=== PATIENT | male | born 1955 | race Caucasian/White ===

== ENCOUNTER 2022-08-17 12:48 | Outpatient (CLI) | payer MEDICARE, OTHER, SELFPAY ==
--- OUTSIDE RECORDS SUMMARY | 2022-08-17 12:50 | XMS_ITS ---
:1955 Author Care Team Providers Name Role Phone TRI KING MD Primary Care Provider [phone] Allergies Code Code System Name Reaction Severity Status Onset NKDA ? Medications Name Status Start Date Stop Date ? ? amoxicillin 500 mg capsule Active ? Not a vailable TK 1 C PO TID UNTIL GONE ceftriaxone 1 gram solution for injection Active ? Not available Take 1 g by injection route. Contour Next EZ Meter Active ? Not availa ble UTD Contour Next Test Strips Active ? Not colby ilable TEST BLOOD SUGARS BID metformin ER 500 mg tablet,extended release 24 hr Active ? Not available TAKE TWO TABLETS BY MOUTH EVERY DAY Microlet Lancet Active ? Not available TEST BID Problems None recorded. Procedures Date Name Performed by ? ? Orthopedic Surgery Information not avai labbinu Notes: Right Forearm/wrist Results Lab Results None recorded. Past Encounters 05/13/2021 Raised Prostate Specific Antigen Phan Peoples MD: [address] [place] [address], Ph. Social History Tobacco Smoking Status Former Smoker Vaccine List None recorded. Plan of Care Reminders Provider Appointments None recorded. ? ? Lab None recorded. ? ? Referral None recorded. ? ? Procedures None recorded. ? ? Surgeries None recorded. ? ? Imaging None recorded. ? ? Vitals Height Weight BMI 6 ft 4 lbs 0.5 kg/m2
[2022-08-17 14:05] LABS: Chloride* 103 mmol/L (96-114); Potassium* 4.9 mmol/L (3.6-5.1); Sodium* 136 mmol/L (135-149)
[2022-08-17 14:08] LABS: Blood Urea Nitrogen* 19 mg/dL (7-30); Carbon Dioxide* 27 mmol/L (20-32); Creatinine* 0.7 mg/dL (0.5-1.5); Estimated Glomerular Filt Rate 100 ml/min; Glucose* 179 mg/dL (60-115)
[2022-08-17 14:09] LABS: Calcium* 9.1 mg/dL (8.4-10.6)
[2022-08-17 14:38] LABS: PSA Diagnostic* 8.73 ng/mL (0.10-4.00)
== END 2022-08-17 12:49 | disposition home or self-care (01) ==
PROVIDERS: PCP Family Medicine; Visit Provider Family Medicine
DX: R97.20 Elevated prostate specific antigen [PSA] (principal); E11.9 Type 2 diabetes mellitus without complications
CPT/HCPCS: 80048; 84153

== ENCOUNTER 2023-02-28 10:33 | Outpatient (CLI) | payer MEDICARE, OTHER, SELFPAY | END 2023-02-28 10:34 | disposition home or self-care (01) | PROVIDERS: PCP Family Medicine; Visit Provider Family Medicine | DX: E11.9 Type 2 diabetes mellitus without complications (principal); R97.20 Elevated prostate specific antigen [PSA] | CPT/HCPCS: 80048; 84153; 84460 ==

== ENCOUNTER 2023-08-28 11:51 | Outpatient (CLI) | payer MEDICARE, OTHER, SELFPAY | END 2023-08-28 11:52 | disposition home or self-care (01) | PROVIDERS: PCP Family Medicine; Visit Provider Family Medicine | DX: I10 Essential (primary) hypertension (principal); E11.9 Type 2 diabetes mellitus without complications; R97.20 Elevated prostate specific antigen [PSA] | CPT/HCPCS: 80061; 84153 ==

== ENCOUNTER 2024-01-05 13:50 | Outpatient (CLI) | payer OTHER, MEDICARE, SELFPAY ==
--- OUTSIDE RECORDS SUMMARY | 2024-01-05 13:51 | XMS_ITS | Data Portability ---
Author Name Unknown Address [address] [place] [address] Phone [phone] Organization [facility], [facility] Address [address] [facility] [address] [place] [address] Care Team Providers Care Parking Station Attendant Name Role Phone TRI KING Primary Care Provider Assessment Encounter Date Assessment Date Assessment LastModified by Organization Details LastModified Time 05/13/2021 05/13/2021 65 year old male with elevated PSA, now s/p biopsy. [email or web address] Not available 05/11/2021 09:09:17 Plan of Treatment Reminders Order Date Submit Date Provider Last Modified By Organization Details Last Modified Time Details Appointments None recorded. Lab None recorded. Referral None recorded. Procedures None recorded. Surgeries None recorded. Imaging None recorded. Medication Orders ceftriaxone 1 gram solution for injection 2020 08 [address]21 [address] [facility], [place], [place], [facility] [place], [address], 09:30:06 Patient TargetsNo targets recorded. Patient InstructionsNo instructions recorded. Reason for Referral None Reported. Results Created Date Observation Date Name Description Value Unit Range Abnormal Flag LastModifiedBy Organization Detail LastModifiedTime 05/14/2005/13/2021 US, prost ate No observ ation record ed. BARCODE Not Available 05/14/2021 09:26:28 Result Notes None recorded. Procedures Surgical History Date Name Laterality Status Provider Name and Address Organization Details Recorded Time Prostate Biopsy Procedure completed Phan Peoples MD [address] [facility],[address], [place], [address], [facility] 05/13/2021 09:51:41 Orthopedic Surgery completed Darlene lees [facility] 05/13/2021 09:21:37 Imaging Results Imaging Date Name Status LastModified by Organiz ation Details LastModified Time 05/13/2021 US, prostate completed BARCODE Information not available 05/14/2021 09:26:28 Procedure Notes None recorded. Medical Equipment None Reported. Allergies No known drug allergies Medications Name Sig Start Date Stop Date Status Note LastModified by Organization Details LastModified Time amoxicillin 500 mg capsule TK 1 C PO TID UNTIL GONE active Not Available Not Available No t Available ceftriaxone 1 gram solution for injection Take 1 g by injection route. 2020 active Not Available Not Available Not Avai lable metformin ER 500 mg tablet,extend ed release 24 hr TAKE TWO TABLETS BY MOUTH EVERY DAY active Not Available Not Available No t Available Microlet Lancet TEST BID active Not Available Not Available Not Available Contour Next Test Strips TEST BLOOD SUGARS BID active Not Available Not Available N ot Available Contour Next EZ Meter UTD active Not Available Not Available Not Available Vitals Date Recorded Body height Body mass index (BMI) Body weight Provider Name and Address Organization Details Last Updated DateTime 05/13/2021 182.88 cm 0.5 kg/m2 1814.37 g Darlene Yumiko yoana [facility] 05/13/2021 09:28:45 Social History Question Answer Notes LastModified by Organizat ion Details LastModified Time Tobacco Smoking Status Former Smoker Darlene lees [facility] 05/13/2021 09:22:45 What Is Your Level Of Alcohol Consumption? Occasional Information not available 05/13/2021 What Is Your Level Of Caffeine Consumption? Occasional Information not available 05/13/2021 When Did You Quit Smoking? 16+yearssincel astcigarette Information not available 05/13/2021 Recreational Drug Use No Information not available 05/13/2021 Could You Be ? No Information not available 05/13/2021 What Was The Date Of Your Most Recent Tobacco Screening? 05/13/2021 Information not available 05/13/2021 Do You Use Any Illicit Or Recreational Drugs? No Information not available 05/13/2021 Sex: Male Functional Status None recorded. Mental Status None recorded. Family History Relationship Description Onset Age of this Age Resolved Age Notes Father No current problems or disability Mother No current problems or disability Medical History Condition Response High Blood Pressure N Kidney Stones N Lung Disease N Depression N GERD/Acid Reflux N Sexually Transmitted Infection N Cancer N High Cholesterol N Diabetes Y Bleeding Disorder N Heart Disease N Past Encounters Encounter ID Performer Location Encounter Start Date Encounter Closed Date Diagnosis/Indication Diagnosis SNOMED-CT Code [id number] Phan Peoples MD [facility] [address] [place] [address] 05/13/2021 09:11:34 05/14/2021 16:30:21 Prostate specific antigen above reference range [id number] Health Concerns Section Related Observation LastModified by Organization Detai ls LastModified Time None Recorded Concern Status LastModified by Organization Details LastModified Time None Recorded Advance Directives Directive None Recorded Payers Encounter Date Sequence Insurance Name Policy Number Policy Deras Covered Member ID Deras Member ID Guarantor Name 05/13/2021 1 [place] [employer] Elena Weiss [place] [id number] Burten Erath 05/13/2021 2 [employer] SU[employer]AL - [employer]URANCE (MEDICARE SUPPLEMENT) Elena Weiss [place] [id number] Shaten [place] Notes Date Note Type Note Provider Name and Address Organization Details Recorded Time 05/13/2021 text/html HPI Notes: 65 year old male who follows with me in our [place] [facility] for elevated PSA (most recently 4.45 ng/mL). Here for TRUS biopsy. Phan Peoples MD [address] [place] [address],[address], [place], [address], [facility] 05/13/2021 09:52:19
--- OUTSIDE RECORDS SUMMARY | 2024-01-05 13:51 | XMS_ITS | Clinical Summary ---
Author Name Unknown Organization [facility] Address [place], [place] [address] Care Team Providers Care Sql Dba Name Role Phone Pcp, No Primary Care Provider Unavailabl e Allergies No known active allergies Medications Medication Sig Dispensed Refills Start Date End Date Status acetaminophen (TYLENOL EXTRA STRGTH) 500 mg tabletIndications:Anabel sed nondisplaced pilon fracture of left tibia, initial encounter Take 2 Tablets (1,000 mg) by mouth every 8 hours. Max acetaminophen dose: 4000mg in 24 hrs. 10/24/2023 Active ibuprofen (ADVIL; MOTRIN) 200 mg tabletIndications:Anabel sed nondisplaced pilon fracture of left tibia, initial encounter Take 1 Tablet (200 mg) by mouth every 6 hours if needed for Pain (mild to moderate pain). 10/24/2023 Active polyethylene glycol (MIRALAX; GLYCOLAX) 17 g per packet packetIndications:Anabel sed nondisplaced pilon fracture of left tibia, initial encounter Mix 17 g in liquid then take by mouth once daily. 10/25/2023 Active sennosides-docusate (SENOKOT S) (8.6-50 mg) tabletIndications:Anabel sed nondisplaced pilon fracture of left tibia, initial encounter Take 2 Tablets by mouth two times daily. 10/24/2023 Active lisinopril-hydrochlor othiazide (10-12.5 mg) tablet (PRINZIDE; ZESTORETIC)Indication s:Essential hypertension Take 1 Tablet by mouth once daily. Hold for Systolic blood pressure less than 120 10/25/2023 Active oxyCODONE (ROXICODONE) 5 mg immediate release tabletIndications:Anabel sed nondisplaced pilon fracture of left tibia, initial encounter Take 1 Tablet (5 mg) by mouth every 6 hours if needed for Pain (for moderate to severe pain). Avoid use with other narcotics. 25 Tablet 10/28/2023 Active metFORMIN (GLUCOPHAGE XR) 500 mg Extended-Release tabletIndications:typ e 2 diabetes mellitus Take 1 Tablet (500 mg) by mouth two times daily with meals. 10/29/2023 Active glimepiride (AMARYL) 4 mg tabletIndications:typ e 2 diabetes mellitus Take 1 Tablet (4 mg) by mouth once daily with a meal. 10/29/2023 Active crutchIndications:Pil on fracture of left tibia, closed, initial encounter For home use. 2 Each 11/07/2023 Active durable medical equipment (DME)Indications:Afte rcare following surgery of the musculoskeletal system 4 wheel walker with seat and basket 1 Each 11/10/2023 Active durable medical equipment (DME)Indications:Afte rcare following surgery of the musculoskeletal system Bench for shower 1 Each 11/10/2023 Active methocarbamoL (ROBAXIN) 500 mg tabletIndications:Anabel sed nondisplaced pilon fracture of left tibia, initial encounter Take 1 Tablet (500 mg) by mouth every 8 hours if needed for Muscle Spasm by mouth 1st choice. 90 Tablet 11/20/2023 Active ondansetron (Zofran) 4 mg tabletIndications:Adelso sea Take 1 Tablet (4 mg) by mouth every 8 hours if needed for Nausea/Vomiting. 10 Tablet 11/20/2023 Active trimethoprim-sulfamet hoxazole, 160-800 mg, (Bactrim DS) tabIndications:Afterc are following surgery of the musculoskeletal system Take 1 Tablet by mouth two times daily for 14 days. 28 Tablet 12/25/2023 4 Active durable medical equipment (DME)Indications:Afte rcare following surgery of the musculoskeletal system Airselect Standard, Large 12/25/2023 Active Active Problems Problem Noted Date Diagnosed Date S/P Open reduction internal fixation of the Left pilon fracture 11/10/2023 DM II (diabetes mellitus, type II), controlled 0 10/18/2023 Fall from ladder 10/17/2023 Tibia fracture 10/17/2023 No active medical problems 09/19/2011 Encounters Date Type Department Care Team Description 12/29/2023 Telephone [facility] [address] [place] [address] Ariel Garner, 12/25/2023 1:30 PM CDT [facility] [address] [place] [address] 12/25/2023 1:00 PM CDT Office Visit [facility] [address] [place] [address] Ariel Garner, DO Musculoskeletal Problem (S/P Open reduction internal fixation of the??Left??pilon fracture, Removal of external fixator under anesthesia by Dr. Garner) 12/25/2023 Travel 11/20/2023 12:05 PM [employer] Ancillary Procedure [facility] [address] [place] [address] 11/20/2023 11:45 AM [employer] Office Visit [facility] [address] [place] [address] Shailesh Granados PA Surgical Followup (S/P Open reduction internal fixation of the Left pilon fracture, Removal of external fixator) 11/20/2023 Travel 11/10/2023 Telephone [facility] [address] [place] [address] Ariel Garner, DO DME Supply ([employer] ) 11/09/2023 Telephone [facility] [address] [place] [address] Ariel Garner, DO Appointment 11/07/[address] [facility] [address] [place] [address] Karely Alston NP 10/27/2023 10:19 AM [employer] - 10/27/2023 1:36 PM [employer] Surgery [place] [id number] [place] [address] Ariel Garner, OPEN REDUCTION INTERNAL FIXATION OF LEFT DISTAL TIBIA FRACTURE AND REMOVAL OF EXTERNAL FIXATOR 10/27/2023 9:50 AM [employer] Anesthesia Event [place] [id number] [facility] [place] [address] Desean Young, RONY 10/24/2023 Telephone [facility] [place] [address] [place] [address] Ariel Garner, Questions (CALL BACK ) 10/21/2023 Travel 10/19/2023 Travel 10/17/2023 2:04 PM [employer] Anesthesia Event [place] [id number] [place] [address] Gage Gama MD Johnson, Benjamin Richard, MD 10/17/2023 12:24 PM [employer] - 10/17/2023 3:08 PM [employer] Surgery [address] [place] [address] Ariel Garner, APPLICATION EXTERNAL FIXATOR LEFT ANKLE, LIMITED OPEN REDUCTION AND INTERNAL FIXATION OF TIBIA FRACTURE 10/17/2023 12:29 AM [employer] - 10/29/2023 2:12 PM [employer] Hospital Encounter [address] [place] [address] Johnny Gutierrez MD Service, Core Trauma Jonas Olivarez, Closed nondisplaced pilon fracture of left tibia, initial encounter (Primary Dx); Essential hypertension; Controlled type 2 diabetes mellitus without complication, without long-term current use of insulin (HC) Discharge Disposition: Custodial Facility 10/16/2023 4:43 PM [employer] - 10/16/2023 11:00 PM [employer] Emergency [facility] [address] [place] [address] Nickie Montes De Oca PA Brennan, Sean Malloy, MD Pilon fracture of left tibia, closed, initial encounter (Primary Dx); Fall, initial encounter Discharge Disposition: Health Care Facility Not On List 10/16/2023 Travel from Last 3 Months Immunizations Name Administration Dates Next Due Tdap 10/18/2023,10/18/2023() Family History Medical History Relation Name Comments Cancer Father Good Health Mother Relation Name Status Comments Brother Alive Daughter Alive Father Mother Alive Sister 1 Alive Sister 2 Alive Sister 3 Alive Sister 4 Alive Son 1 Alive Son 2 Alive Son 3 Alive Social History Tobacco Use Types Packs/Day Years Used Date Smoking Tobacco: Former Cigarettes Q uit: 09/01/2004 Smokeless Tobacco: Never Tobacco Cessation:Counseling Given: Not Answered Alcohol Use Standard Drinks/Week Comments Not Currently 3 (1 standard drink = 0.6 oz pur e alcohol) social Social Connections Answer Date Recorded Frequency of Communication with Friends and Fami ly 0 10/17/2023 Financial Resource Strain Answer Date R ecorded Difficulty of Paying Living Expenses 3 10/17/2023 Difficulty of Paying Living Expenses Not on file 10/17/2023 Food Insecurity Answer Date Recorded Worried About Running Out of Food in the Last Ye ar 1 10/17/2023 Transportation Needs Answer Date Record ed Lack of Transportation (Medical) 1 10/17/2023 Housing Stability Answer Date Recorded Unable to Pay for Housing in the Last Year 1 10/17/2023 Sex and Gender Information Value Date Recorded Sex Assigned at Not on file Gender Identity Not on file Sexual Orientation Not on file Obstetrics History Last Filed Vital Signs Vital Sign Reading Time Taken Comments Blood Pressure 131/88 10/29/2023 7:44 AM [employer] Pulse 97 10/29/2023 7:44 AM [employer] Temperature 36.9 ??C (98.4 ??F) 10/29/2023 7:44 AM CS T Respiratory Rate 16 10/29/2023 7:44 AM [employer] Oxygen Saturation 98% 10/29/2023 7:44 AM [employer] Inhaled Oxygen Concentration - - Weight 113.5 kg (250 lb 3.6 oz) 10/27/2023 4:36 AM [employer] Height 182.9 cm (6') 10/17/2023 12:55 PM [employer] Body Mass Index 33.94 10/17/2023 12:55 PM [employer] Plan of Treatment Upcoming Encounters Date Type Department Care Team (Late st Contact Info) Description 01/15/2024 9:45 AM CDT Office Visit [facility] [place] [address] [place], [place] [phone] [place] [address] [facility] [address] [place] [address] Health Maintenance Due Date Last Done Comments Pneumococcal series for age 65+ (1 of 2 - PCV) 1959 Hepatitis C screening for age 18-79 1971 Colonoscopy through age 75 1998 Lipids for age 45-75 1998 Zoster (shingles) series for age 50+ (1 of 2) 2003 Depression screening for age 12+ 12/21/2016 12/22/19 16 AAA screening age 65-74 2018 Medicare Wellness for age 65+ 2018 BMI (ht and wt on same day) for age 18+ 07/09/2019 07/09/2018, 06/13/2016, 12/22/2015 COVID-19 vaccine series ( season) 2023 12/25/2020, 12/04/2020 Influenza for age 65+ 06/02/2024 Tetanus booster 10/18/2033 10/18/2023 Tdap Completed 10/18/2023 Medical Devices Implanted Type Area Oil Spraying Machine Operator Device Identifier Shelf Expiration Date Model / Serial / Lot Screw Bone 2.4x30mm Evos Cortex T7 S-T - [id number] Implanted:Qty: 2 on 10/27/2023 by Ariel Garner DO at [facility] Left: Leg [employer] [id number] / / Description:Sticker sheet no t received for this case Screw Bone 3.5x65mm Evos Small Cortex Slf Tppng - [id number] Implanted:Qty: 1 on 10/27/2023 by Ariel Garner DO at [facility] Left: Leg [employer] [id number] / / Description:Sticker sheet no t received for this case Screw Bone 2.7x40mm Evos T8 Slf Tppng - [id number] Implanted:Qty: 2 on 10/27/2023 by Ariel Garner DO at [facility] Left: Leg [employer] [id number] / / Description:Sticker sheet no t received for this case Screw Bone 2.7x44mm Evos T8 Slf Tppng - [id number] Implanted:Qty: 2 on 10/27/2023 by Ariel Garner DO at [facility] Left: Leg [employer] [id number] / / Description:Sticker sheet no t received for this case Screw Bone 2.7x46mm Evos T8 Slf Tppng - [id number] Implanted:Qty: 1 on 10/27/2023 by Ariel Garner DO at [facility] Left: Leg [employer] [id number] / / Description:Sticker sheet no t received for this case Screw Bone 2.7x38mm Evos T8 Slf Tppng - [id number] Implanted:Qty: 1 on 10/27/2023 by Ariel Garner DO at [facility] Left: Leg [employer] [id number] / / Description:Sticker sheet no t received for this case Screw Bone 3.5x42mm Evos Small Cortex Slf Tppng - [id number] Implanted:Qty: 3 on 10/27/2023 by Ariel Garner DO at [facility] Left: Leg [employer] [id number] / / Description:Sticker sheet no t received for this case Screw Bone 3.5x85mm Evos Small Cortex Slf Tppng - [id number] Implanted:Qty: 1 on 10/27/2023 by Ariel Garner DO at [facility] Left: Leg [employer] [id number] / / Description:Sticker sheet no t received for this case Screw Bone 3.5x24mm Evos Small Cortex Slf Tppng - [id number] Implanted:Qty: 1 on 10/27/2023 by Ariel Garner DO at [facility] Left: Leg [employer] [id number] / / Description:Sticker sheet no t received for this case Explanted Type Area Oil Spraying Machine Operator Device Identifier Shelf Expiration Date Model / Serial / Lot K-Wire [id number] St-St - [id number] Explanted:Qty: 1 on 10/17/2023 by Ariel Garner DO at [facility] Left: Leg [employer] [id number] / / Screw Sm Joint 3.5x30mm Variax 2 Bone - [id number] Implanted:Qty: 3 on 10/17/2023 by Ariel Garner DO at [facility] Explanted:Qty: 3 on 10/27/2023 by Ariel Garner DO at [facility] Left: Leg [employer] [id number] / / Plate 71mm 6 Hole One-Third Tubular - [id number] Implanted:Qty: 1 on 10/17/2023 by Ariel Garner DO at [facility] Explanted:Qty: 1 on 10/27/2023 by Ariel Garner DO at [facility] Left: Leg [employer] [id number] / / Pin Sm Joint [id number] [place] Slf Tppng St-St - [id number] Implanted:Qty: 2 on 10/17/2023 by Ariel Garner DO at [facility] Explanted:Qty: 2 on 10/27/2023 by Ariel Garner DO at [facility] Left: Leg [employer] 5018-6-200 / / Parveen Sm Joint [id number] Hoffman3 - [id number] Implanted:Qty: 1 on 10/17/2023 by Ariel Garner DO at [facility] Explanted:Qty: 1 on 10/27/2023 by Ariel Garner DO at [facility] Left: Leg [employer] 4922-8-350 / / Parveen Sm Joint [id number] Hoffman3 - [id number] Implanted:Qty: 1 on 10/17/2023 by Ariel Garner DO at [facility] Explanted:Qty: 1 on 10/27/2023 by Ariel Garner DO at [facility] Left: Leg [employer] 4922-8-400 / / Clamp Sm Joint Roche 3 2 Post 30 Deg - [id number] Implanted:Qty: 1 on 10/17/2023 by Ariel Garner, DO at [facility] Explanted:Qty: 1 on 10/27/2023 by Ariel Garner, DO at [facility] Left: Leg [employer] 4922-2-240 / / Coupling Sm Joint 5/8/11mm Roche 3 Parveen To Parveen - [id number] Implanted:Qty: 4 on 10/17/2023 by Areil Garner, at [facility] Explanted:Qty: 4 on 10/27/2023 by Ariel Garner, at [facility] Left: Leg [employer] 4922-1-010 / / Screw Sm Joint 3.5x28mm Variax 2 Bone - [id number] Implanted:Qty: 1 on 10/17/2023 by Ariel Garner, at [facility] Explanted:Qty: 1 on 10/27/2023 by Ariel Garner, at [facility] Left: Leg [employer] [id number] / / Procedures Procedure Name Priority Date/Time Associated Diagnosis Comments XR ANKLE 3 VIEWS LEFT Routine 12/25/2023 1:41 PM CDT S/P Open reduction internal fixation of the??Left??pilon fracture, Removal of external fixator under anesthesia by Dr. Garner XR ANKLE 3 VIEWS LEFT Routine 11/20/2023 12:15 PM [employer] S/P Open reduction internal fixation of the??Left??pilon fracture, Removal of external fixator under anesthesia by Dr. Garner GLUCOSE METER Timed 10/29/2023 11:15 AM [employer] HEMOGLOBIN Early AM 10/29/2023 6:27 AM [employer] CREATININE Early AM 10/29/2023 6:27 AM [employer]ER POTASSIUM Early AM 10/29/2023 6:27 AM [employer]ER SODIUM Early AM 10/29/2023 6:27 AM [employer] OFF[employer]ER HEMOGLOBIN A1C LINDSEY 10/28/2023 10:29 PM [employer] OFFICER HEMOGLOBIN A1C SCREENING Early AM 10/28/2023 10:29 PM [employer]ER GLUCOSE METER Timed 10/28/2023 9:45 PM [employer]ER GLUCOSE METER Timed 10/28/2023 5:54 PM [employer] OFFICER GLUCOSE METER Timed 10/28/2023 11:51 AM [employer] OFFICER GLUCOSE METER Timed 10/28/2023 7:24 AM [employer] OFFICER HEMOGLOBIN Early AM 10/28/2023 6:42 AM [employer] OFFICER GLUCOSE METER Timed 10/27/2023 9:24 PM [employer] OFFICER GLUCOSE METER Timed 10/27/2023 5:15 PM [employer]ICER XR C-ARM EQUAL OR GREATER 4 HR Routine 10/27/2023 3:23 PM [employer] XR TIBIA AND FIBULA 2 VIEWS LEFT Routine 10/27/2023 3:23 PM [employer] ENDOTRACHEAL TUBE Routine 10/27/2023 10: 07 AM [employer]ER ENDOTRACHEAL TUBE Routine 10/27/2023 10: 07 AM [employer]ER OPEN REDUCTION INTERNAL FIXATION TIBIA FIBULA 10/27/2023 9:34 AM [employer]ICER LEFT DISTAL TIBIA FRACTURE Case Notes NO CIED, 248 LBS, ROSE AND NEPHEW DISTAL TIBIA PLATES, ROSE AND NEPHEW EVOS MINI, C-ARM, JENNIFER CLAMPS, GELPI, REGULAR TABLE Jv Nathan [phone] notified of case 10/27 1019 (1/23 [facility]) PERIPHERAL BLOCK Routine 10/27/2023 9:17 AM [employer]ER GLUCOSE METER Timed 10/27/2023 7:52 AM [employer] OFFICER GLUCOSE METER Timed 10/26/2023 9:15 PM [employer] OFFICER GLUCOSE METER Timed 10/26/2023 5:03 PM [employer] OFFICER GLUCOSE METER Timed 10/26/2023 11:51 AM [employer] OFFICER GLUCOSE METER Timed 10/26/2023 8:19 AM [employer] OFFICER GLUCOSE METER Timed 10/25/2023 9:27 PM [employer] OFFICER GLUCOSE METER Timed 10/25/2023 3:38 PM [employer] OFFICER GLUCOSE METER Timed 10/25/2023 11:56 AM [employer] OFFICER GLUCOSE METER Timed 10/25/2023 8:07 AM [employer] OFFICER GLUCOSE METER Timed 10/24/2023 9:54 PM [employer] OFFICER GLUCOSE METER Timed 10/24/2023 5:18 PM [employer] OFFICER GLUCOSE METER Timed 10/24/2023 11:51 AM [employer] OFFICER GLUCOSE METER Timed 10/24/2023 8:28 AM [employer] OFFICER BASIC METABOLIC PANEL Early AM 10/24/2023 6:39 AM [employer] OFFICER GLUCOSE METER Timed 10/23/2023 9:53 PM [employer] OFFICER GLUCOSE METER Timed 10/23/2023 5:10 PM [employer] OFFICER GLUCOSE METER Timed 10/23/2023 12:03 PM [employer] OFFICER GLUCOSE METER Timed 10/23/2023 7:32 AM [employer] OFFICER GLUCOSE METER Timed 10/22/2023 10:20 PM [employer] OFFICER GLUCOSE METER Timed 10/22/2023 4:16 PM [employer] OFFICER GLUCOSE METER Timed 10/22/2023 11:59 AM [employer] OFFICER GLUCOSE METER Timed 10/22/2023 7:27 AM [employer]ER CBC WITH AUTO DIFFERENTIAL Early AM 10/22/2023 7:17 AM [employer] CBC WITH AUTO DIFFERENTIAL Early AM 10/22/2023 7:17 AM [employer] BASIC METABOLIC PANEL Early AM 10/22/2023 7:17 AM [employer]ER GLUCOSE METER Timed 10/21/2023 9:37 PM [employer] OFFICER GLUCOSE METER Timed 10/21/2023 4:23 PM [employer] OFFICER GLUCOSE METER Timed 10/21/2023 12:53 PM [employer] OFFICER GLUCOSE METER Timed 10/21/2023 7:31 AM [employer] OFFICER BASIC METABOLIC PANEL Early AM 10/21/2023 7:17 AM [employer] OFFICER GLUCOSE METER Timed 10/20/2023 9:16 PM [employer] OFFICER GLUCOSE METER Timed 10/20/2023 4:46 PM [employer] OFFICER GLUCOSE METER Timed 10/20/2023 11:23 AM [employer] OFFICER GLUCOSE METER Timed 10/20/2023 7:56 AM [employer] OFFICER CBC WITH AUTO DIFFERENTIAL Early AM 10/20/2023 6:21 AM [employer]ER CBC WITH AUTO DIFFERENTIAL Early AM 10/20/2023 6:21 AM [employer]ICER BASIC METABOLIC PANEL Early AM 10/20/2023 6:21 AM [employer]ER GLUCOSE METER Timed 10/19/2023 5:33 PM [employer]ER INFLUENZA A/B PCR Today 10/19/2023 1:3 6 PM [employer] COVID-19 MOLECULAR Today 10/19/2023 1: 36 PM [employer] GLUCOSE METER Timed 10/19/2023 12:24 PM [employer] XR ABDOMEN 1 VIEW PORTABLE Routine 10/19/2023 11:31 AM [employer]ICER GLUCOSE METER Timed 10/19/2023 8:30 AM [employer]ER GLUCOSE METER Timed 10/18/2023 10:19 PM [employer] OFFICER GLUCOSE METER Timed 10/18/2023 12:09 PM [employer]ER GLUCOSE METER Timed 10/18/2023 9:06 AM [employer] OFFICER CT ANKLE LEFT WO STAT 10/17/2023 6:13 PM [employer] OFFICER XR C-ARM GREATER 1 HR STAT 10/17/2023 4:06 PM [employer] XR ANKLE 2 VIEWS LEFT STAT 10/17/2023 4:06 PM [employer]ER ENDOTRACHEAL TUBE Routine 10/17/2023 2:4 1 PM [employer]ER ENDOTRACHEAL TUBE Routine 10/17/2023 2:4 1 PM [employer]ICER APPLICATION EXTERNAL FIXATOR LOWER EXTREMITY 10/17/2023 1:48 PM [employer]ER Ankle Fracture Case Notes DEREK TYPE & SCREEN STAT 10/17/2023 4:10 AM [employer]ER CREATININE LINDSEY 10/17/2023 3:20 AM [employer] OFFICER SCAN-CARDIAC STRIP 10/17/2023 12 :00 AM [employer]ICER SPLINT APPLICATION Routine 10/16/2023 9: 28 PM [employer]ER XR SPINE LUMBAR 2 VIEWS STAT 10/16/2023 8:43 PM [employer] OFFICER XR PELVIS 1 VIEW STAT 10/16/2023 8:43 PM [employer] OFFICER XR TIBIA AND FIBULA 2 VIEWS LEFT STAT 10/16/2023 6:22 PM [employer]ER XR FOOT 3 VIEWS LEFT STAT 10/16/2023 5:24 PM [employer]ER XR ANKLE 3 VIEWS LEFT STAT 10/16/2023 5:23 PM [employer] OFFICER CT SPINE CERVICAL WO STAT 10/16/2023 5:19 PM [employer]ER CT HEAD BRAIN WO STAT 10/16/2023 5:18 PM [employer] OFFICER CRITICAL CARE PROVIDED Routine 10/16/2023 5:01 PM [employer] OFFICER from Last 3 Months Results * XR ANKLE 3 VIEWS LEFT (12/25/2023 1:41 PM CDT) Only the most recent of3 resultswithin the time period is included. Anatomical Region Laterality Modality ANKLES, ANKLE L Computed Radiogr aphy Impressions 12/27/2023 4:30 PM CDT As noted in findings above. Reading services were personally performed by Dr. Ariel Garner , documentation performed by Kimberly Hobson LPN based on my observation of services performed and provider statements to me. Dr. Ariel Garner 12/25/2023 Narrative 12/27/2023 4:30 PM CDT For Patients: ??As a result of the Century Cures Act, medical imaging exams and procedure reports are released immediately into your electronic medical record. ??You may view this report before your referring provider. ?? If you have questions, please contact your health care provider. This radiology exam was performed at the [facility] in [facility] and interpreted by Dr. Ariel Garner HISTORY: A 68 y.o. year-old male with left ankle pain with history of trauma. TECHNICAL: 3 views of the left ankle were obtained consisting of a non-weightbearing AP, lateral and mortise. FINDINGS: 3 views of left ankle obtained in clinic today were reviewed with patient. They demonstrate distal tibia fracture as well as tibial shaft fracture fixed with multiple plate and screw fixation. ??The fracture appears anatomically aligned. ??Ankle mortise is congruent. ??He can still see the fracture line however it looks to be slowly filling in suggesting interval healing. ??There are some disuse osteopenia of the foot. ??No signs of hardware failure or screw loosening. Ariel Garner DO GENERAL IMAGING * (ABNORMAL) GLUCOSE METER (10/29/2023 11:15 AM [employer]) Only the most recent of42 resultswithin the time period is included. GLUCOSE METER 174(H) 65 - 100 mg/dL 10/29/2023 11:25 AM [employer] [facility] Blood BLOOD SPECIMEN / Unknown 10/29/2023 11:15 AM [employer] 10/29/2023 11:25 AM [employer] [facility] CHEMISTRY [facility] INTERNAL [address] [id number] [place] [address] * (ABNORMAL) HEMOGLOBIN (10/29/2023 6:27 AM [employer]) Only the most recent of2 resultswithin the time period is included. HEMOGLOBIN 11.2(L) 13.5 - 17.5 g/dL 10/29/2023 6:41 AM [employer] [facility] MCV 87 80 - 100 fL 10/29/2023 6:41 AM [employer] [facility] Blood BLOOD SPECIMEN / Unknown Butterfly / Unknown 10/29/2023 6:27 AM [employer] 10/29/2023 6:38 AM [employer] Viki Dobbs DO HEMATOLOGY [facility] [place]NAL ZIP [phone] [place] [address] * SODIUM (10/29/2023 6:27 AM [employer]) SODIUM 136 136 - 145 mmol/L 10/29/2023 7:06 AM [facility] Blood BLOOD SPECIMEN / Unknown Butterfly / Unknown 10/29/2023 6:27 AM [employer] 10/29/2023 6:38 AM [employer] Viki Dobbs CHEMISTRY [facility] INTERNAL ZIP [phone] [place] [address] * POTASSIUM (10/29/2023 6:27 AM [employer]) POTASSIUM 4.1 3.5 - 5.1 mmol/L 10/29/2023 7:06 AM [facility] Blood BLOOD SPECIMEN / Unknown Butterfly / Unknown 10/29/2023 6:27 AM [employer] 10/29/2023 6:38 AM [employer] Viki Reidpatsy LIGHT CHEMISTRY Performing Organization Address City/[facility]/ZIP Co de Phone Number [facility] INTERNAL ZIP [phone] [place] [address] * (ABNORMAL) CREATININE (10/29/2023 6:27 AM [employer]) Only the most recent of2 resultswithin the time period is included. eGFR 84(L) >90 mL/min/1.7 3m2 10/29/2023 7:06 AM [facility] Comment:As of 2021, eG FR is calculated by the CKD-EPI creatinine equation without race adjustment. ??eGFR can be influenced by muscle mass, exercise, and diet. ??The reported eGFR is an estimation only and is only applicable if the renal function is stable. CREATININE 0.97 0.70 - 1.20 mg/dL 10/29/2023 7:06 AM [facility] Blood BLOOD SPECIMEN / Unknown Butterfly / Unknown 10/29/2023 6:27 AM [employer] 10/29/2023 6:38 AM [employer] Viki Dobbs DO CHEMISTRY [facility] INTERNAL ZIP [phone] [place] [address] * (ABNORMAL) HEMOGLOBIN A1C SCREENING (10/28/2023 10:29 PM [employer]) HEMOGLOBIN A1C SCREENING 8.2(H) <=6.4 % 10/29/2023 11:02 AM [employer] [facility] Blood BLOOD SPECIMEN / Unknown Venipuncture / Unknown 10/28/2023 10:29 PM [employer] 10/28/2023 10:31 PM [employer] Narrative [facility] - 10/29/2023 11:02 AM [employer] ? (<5.7%) ?Normal ? (5.7% to 6.4%) ? Indicates prediabetes ? (>=6.5%) ? Confirms diabetes Falsely low levels may be seen with: Recent Transfusion, Recent Significant Blood Loss, Hemolytic Diseases, or Falsely elevated levels may be seen with: Untreated Anemias, Splenectomy Alexa Jacome BOOK ILLUSTRATOR CHEMISTRY [facility] [address] [place] [address], * (ABNORMAL) HEMOGLOBIN A1C MONITORING (POCT) (10/28/2023 10:29 PM [employer]) HEMOGLOBIN A1C MONITORING (POCT) 8.1(H) <=6.4 % 10/29/2023 8:15 AM [employer] [facility] Blood BLOOD SPECIMEN / Unknown Venipuncture / Unknown 10/28/2023 10:29 PM [employer] 10/28/2023 10:31 PM [employer] Narrative [facility] - 10/29/2023 8:15 AM [employer] ? (<=6.9%) ? Indicates good control ? (7.0% to 7.9%) ? Indicates fair control ? (>=8.0%) ? Indicates poor control ?? NOTE: ??These thresholds are guidelines and ?individual targets may vary. Falsely low levels may be seen with: Recent Transfusion, Recent Significant Blood Loss, Hemolytic Diseases, or Falsely elevated levels may be seen with: Untreated Anemias, Splenectomy ? Ariel Garner DO CHEMISTRY [facility] [address] [place] [address], * XR C-ARM EQUAL OR GREATER 4 HR (10/27/2023 3:23 PM [employer]) Narrative Silent, Sched - 10/27/2023 3:24 PM [employer] The result for this exam is either scanned and attached to this order or are included in the ordering provider's NOTES from the patient's Office Visit or Surgical procedure from this date. Ariel Garner DO FLUOROSCOPY * XR TIBIA AND FIBULA 2 VIEWS LEFT (10/27/2023 3:23 PM [employer]) Only the most recent of2 resultswithin the time period is included. Anatomical Region Laterality Modality Tibia Digital Radiogra phy 10/27/2023 3:23 PM [employer] Narrative 10/27/2023 3:38 PM [employer] For Patients: As a result of the Century Cures Act, medical imaging exams and procedure reports are released immediately into your electronic medical record. You may view this report before your referring provider. If you have questions, please contact your health care provider. [facility] XR TIBIA AND FIBULA 2 VIEWS LEFT ?? 10/27/2023 3:23 PM [employer] INDICATION: Intraoperative fracture fixation FLUOROSCOPIC TIME: 556 seconds ?? NUMBER OF IMAGES: 27 FINDINGS: Fluoroscopy was provided to the patient's physician for the procedure. Spot images demonstrate plate and screw fixation distal tibia fracture. See procedure note for further details. Procedure Note Phan Caceres MD - 10/27/2023 For Patients: As a result of the Cures Act, medical imagingexams and procedure reports are released immediately into your electronicmedical record. You may view this report before your referring provider.If you have questions, please contact your health care provider. [facility] XR TIBIA AND FIBULA 2 VIEWS LEFT 10/27/2023 3:23 PM [employer] INDICATION: Intraoperative fracture fixation FLUOROSCOPIC TIME: 556 seconds NUMBER OF IMAGES: 27 FINDINGS: Fluoroscopy was provided to the patient's physician for theprocedure. Spot images demonstrate plate and screw fixation distal tibiafracture. See procedure note for further details. Ariel Garner DO GENERAL IMAGING * HCHG TUBE PR1, HCHG STYLET PR1 (10/27/2023 10:07 AM [employer]) Narrative Desean Young CRNA - 10/27/2023 10:07 AM [employer] Desean Young CRNA ? 10/27/2023 10:07 AM Procedure: ETT Patient location during procedure: OR ETT Properties Mask Ventilation: easy Final Technique: cricoid pressure and direct laryngoscopy Type: straight Location: oral Cuffed: yes Tube Size: 7.5 mm Stylet: yes Laryngoscope Blade: Soto Blade Size: 2 Cormack-Lehane Grade View: 1 Insertion Attempts: 2 Placement Verification: auscultation, end tidal CO2 and symmetrical chest wall movement Assessment: pharynx clear, atraumatic and dentition unchanged Secured at: 22 Measured From: teeth Difficulty: 0 (not difficult) Jose Newton MD ANESTHESIA PX NO TE ORDERABLES * HCHG ANES BLOCK INJ PERIPH (10/27/2023 9:17 AM [employer]) Narrative Jose Newton MD - 10/27/2023 9:17 AM [employer] Jose Newton MD ? 10/27/2023 ??9:19 AM Peripheral Block Patient location during procedure: pre-op Start time: 10/27/2023 9:06 AM End time: 10/27/2023 9:11 AM Reason for block: at surgeon's request and post-op pain Requesting provider: Ariel Garner DO PreProcedure Checklist Completed: patient identified, site marked, risks and benefits discussed, surgical consent, timeout performed and hand hygiene performed. Peripheral Block Patient position: supine Prep: chloraprep Patient monitoring: continuous pulse oximetry, ECG and blood pressure Neuro Status: alert Block type: popliteal sciatic and lower extremity , regional analgesia techniques Lower extremity block type: popliteal sciatic Laterality: left Injection technique: single injection Injection assessment: incremental Needle Needle type: Tuohy ?? Needle Details: echogenic Needle gauge: 20 G Needle length: 4 in Unilateral needle localization (ultrasound): live ultrasound guidance and permanent images obtained. Unilateral needle Localization (plane blocks): needle and expected nerve location visualized, local anesthetic visualized in anatomic plane and anatomic plane and expected location of nerve appears normal Catheter Catheter used:no Test Dose Result: negative Events: no complications. Jose Newton MD ANESTHESIA PX NO TE ORDERABLES * (ABNORMAL) BASIC METABOLIC PANEL (10/24/2023 6:39 AM [employer]) Only the most recent of4 resultswithin the time period is included. SODIUM 135(L) 136 - 145 mmol/L 10/24/2023 7:20 AM [facility] POTASSIUM 3.9 3.5 - 5.1 mmol/L 10/24/2023 7:20 AM [facility] CHLORIDE 101 98 - 107 mmol/L 10/24/2023 7:20 AM [facility] CO2,TOTAL 23 22 - 29 mmol/L 10/24/2023 7:20 AM [facility] ANION GAP 11 5 - 18 10/24/2023 7:20 AM [facility] GLUCOSE 158(H) 70 - 99 mg/dL 10/24/2023 7:20 AM [facility] CALCIUM 8.7(L) 8.8 - 10.2 mg/dL 10/24/2023 7:20 AM [facility] BUN 30(H) 8 - 23 mg/dL 10/24/2023 7:20 AM [facility] CREATININE 0.89 0.70 - 1.20 mg/dL 10/24/2023 7:20 AM [facility] BUN/CREAT RATIO 34(H) 10 - 20 7:20 AM [facility] eGFR >90 >90 mL/min/1.7 3m2 10/24/2023 7:20 AM [facility] Comment:As of 2021, eG FR is calculated by the CKD-EPI creatinine equation without race adjustment. ??eGFR can be influenced by muscle mass, exercise, and diet. ??The reported eGFR is an estimation only and is only applicable if the renal function is stable. Blood BLOOD SPECIMEN / Unknown Butterfly / Unknown 10/24/2023 6:39 AM [employer] 10/24/2023 6:57 AM [employer] Blanca THOMPSON CHEMISTRY [facility] INTERNAL [facility] [phone] [place] [address] * (ABNORMAL) CBC WITH AUTO DIFFERENTIAL (10/22/2023 7:17 AM [employer]) Only the most recent of2 resultswithin the time period is included. WHITE BLOOD COUNT 10.4 4.5 - 11.0 thou/cu mm 10/22/2023 7:23 AM [facility] RED BLOOD COUNT 4.69 4.30 - 5.90 mil/cu mm 10/22/2023 7:23 AM [facility] HEMOGLOBIN 13.7 13.5 - 17.5 g/dL 10/22/2023 7:23 AM [facility] HEMATOCRIT 40.4 37.0 - 53.0 % 10/22/2023 7:23 AM [facility] MCV 86 80 - 100 fL 10/22/2023 7:23 AM [facility] MCH 29.2 26.0 - 34.0 pg 10/22/2023 7:23 AM [facility] MCHC 33.9 32.0 - 36.0 g/dL 10/22/2023 7:23 AM [facility] RDW 12.9 11.5 - 15.5 % 10/22/2023 7:23 AM [facility] PLATELET COUNT 284 140 - 440 thou/cu mm 10/22/2023 7:23 AM [facility] MPV 10.1 6.5 - 11.0 fL 10/22/2023 7:23 AM [facility] NRBC 0.0 % 10/22/2023 7:23 AM [facility] ABS NRBC 0.0 thou /cu mm 10/22/2023 7:23 AM [facility] % NEUT 71.0 % 10/22/2023 7:23 AM [facility] % LYMPH 14.6 % 10/22/2023 7:23 AM [facility] % MONO 11.9 % 10/22/2023 7:23 AM [facility] % EOS 1.1 % 10/22/2023 7:23 AM [facility] % BASO 0.7 % 10/22/2023 7:23 AM [facility] % IMMATURE GRAN (METAS,MYELOS,SC OS) 0.7 % 10/22/2023 7:23 AM [facility] ABSOLUTE NEUTROPHILS 7.4(H) 1.7 - 7.0 thou/cu mm 10/22/2023 7:23 AM [facility] ABSOLUTE LYMPHOCYTES 1.5 0.9 - 2.9 thou/cu mm 10/22/2023 7:23 AM [facility] ABSOLUTE MONOCYTES 1.2(H) <0.9 thou/cu mm 10/22/2023 7:23 AM [facility] ABSOLUTE EOSINOPHILS 0.1 <0.5 thou/cu mm 10/22/2023 7:23 AM [facility] ABSOLUTE BASOPHILS 0.1 <0.3 thou/cu mm 10/22/2023 7:23 AM [facility] ABSOLUTE IMMATURE GRANULOCYTES(MET ,MYELOS,PROS) 0.1 <0.3 thou/cu mm 10/22/2023 7:23 AM [facility] Blood BLOOD SPECIMEN / Unknown Butterfly / Unknown 10/22/2023 7:[address] [facility] 10/22/2023 7:20 AM [employer] Blanca THOMPSON HEMATOLOGY [facility] INTERNAL ZIP [phone] [place] [address] * COVID-19 MOLECULAR (10/19/2023 1:36 PM [employer]) COVID 19 [place] MOLECULAR Negative Negative 10/19/2023 2:56 PM [facility] Comment:All PCR tests are feliciano bject to false negative result due to variability in viral load and collection technique. A negative result does not rule out a SARS-CoV-2 infection. Clinical correlation required. TESTING LABORATORY [facility] 10/19/2023 2:56 PM [facility] Comment:Specimen submitted t o [facility] for testing. Other SPECIMEN FROM NASOPHARYNGEAL STRUCTURE / Unknown Non-Blood / Unknown 10/19/2023 1:36 PM [employer] 10/19/2023 1:44 PM [employer] [facility] - 10/19/2023 2:56 PM [employer] This test has been authorized by FDA under an Emergency Use Authorization (EUA). This test is only authorized for the duration of time the declaration that circumstances exist justifying the authorization of the emergency use of in vitro diagnostic tests for detection of SARS-CoV-2 virus and/or diagnosis of COVID-19 infection under section 564(b)(1) of the Act, 21 U.S.C. 360bbb-3(b) (1), unless the authorization is terminated or revoked sooner. Blanca THOMPSON MICROBIOLOGY [facility] INTERNAL ZIP [phone] [place] [address] * INFLUENZA A/B PCR (10/19/2023 1:36 PM [employer]) INFLUENZA A PCR Negative 10/19/2023 2:56 PM [employer] [facility] INFLUENZA B PCR Negative 10/19/2023 2:56 PM [facility] Other SPECIMEN FROM NASOPHARYNGEAL STRUCTURE / Unknown Non-Blood / Unknown 10/19/2023 1:36 PM [employer] 10/19/2023 1:44 PM [employer] Blanca THOMPSON MICROBIOLOGY [facility] INTERNAL ZIP [phone] [place] [address] * XR ABDOMEN 1 VIEW PORTABLE (10/19/2023 11:31 AM [employer]) Anatomical Region Laterality Modality Abdomen Digital Radiogra phy 10/19/2023 11:3 1 AM [employer] Impressions 10/19/2023 1:51 PM [employer] No signs of bowel obstruction, pneumatosis, or pneumoperitoneum. Moderate volume formed stool seen throughout colon. There is moderate gaseous distention of the stomach. No pathologic calcifications or signs of organomegaly. Coarse interstitial markings are seen in the imaged lower lungs, suggestive of chronic interstitial change. No acute osseous abnormality. Narrative 10/19/2023 1:51 PM [employer] For Patients: As a result of the Cures Act, medical imaging exams and procedure reports are released immediately into your electronic medical record. You may view this report before your referring provider. If you have questions, please contact your health care provider. EXAM: XR ABDOMEN 1 VIEW PORTABLE LOCATION: [facility] DATE: 10/19/2023 INDICATION: Abdominal Pain. COMPARISON: None. Procedure Note Arpan Groves, - 10/19/2023 For Patients: As a result of the Cures Act, medical imagingexams and procedure reports are released immediately into your electronicmedical record. You may view this report before your referring provider.If you have questions, please contact your health care provider. EXAM: XR ABDOMEN 1 VIEW PORTABLE LOCATION: [facility] DATE: 10/19/2023 INDICATION: Abdominal Pain. COMPARISON: None. IMPRESSION: No signs of bowel obstruction, pneumatosis, or pneumoperitoneum. Moderatevolume formed stool seen throughout colon. There is moderate gaseousdistention of the stomach. No pathologic calcifications or signs oforganomegaly. Coarse interstitial markings are seen in the imaged lowerlungs, suggestive of chronic interstitial change. No acute osseousabnormality. Blanca Ada THOMPSON GENERAL IMAGING * CT ANKLE LEFT WO (10/17/2023 6:13 PM [employer]) Anatomical Region Laterality Modality ANKLE L Computed Tomogra phy 10/17/2023 6:13 PM [employer] Impressions 10/17/2023 6:59 PM [employer] 1. ??Comminuted distal tibial fractures (pilon fracture), with a primary longitudinal fracture in the coronal plane, extending to the tibial articular surface in the tibiotalar joint. There is a punch fragment at the articular surface, resulting in an articular surface defect that measures approximately 1 cm anterior to posterior and 4 cm medial to lateral. 2. ??Internal fixation plate and screws along the posteromedial aspect of the distal tibial diaphysis. This partially fixates the previously described longitudinal fracture. No evidence of hardware loosening or other complication. 3. ??Transverse oblique fracture across the base of the medial malleolus. 4. ??No fibular fracture visualized. If clinically appropriate and not yet previously performed, would recommend tibia/fibular radiographs to ensure no proximal fibular fracture/Maisonneuve fracture. 5. ??External fixation hardware in place, with traversing screws across the posterior body of the calcaneus. No evidence of complication. 6. ??Soft tissue swelling, edema, and air in the lower calf and ankle. Narrative 10/17/2023 6:59 PM [employer] For Patients: As a result of the Century Cures Act, medical imaging exams and procedure reports are released immediately into your electronic medical record. You may view this report before your referring provider. If you have questions, please contact your health care provider. EXAM: CT ANKLE LEFT WO LOCATION: [facility] DATE: 10/17/2023 INDICATION: Fracture evaluation status post external fixation. COMPARISON: None. TECHNIQUE: Noncontrast. Axial, sagittal and coronal thin-section reconstruction. Dose reduction techniques were used. FINDINGS: BONES: -Comminuted distal tibial fractures (pilon fracture). This includes a primary longitudinal vertical fracture in the coronal plane. There is transverse fracture extension into the anterior cortex at the level of the distal diaphysis. There is mild comminution at the level of the tibiotalar joint, including a dye punch fracture component, which results in an articular surface defect that measures up to 10 mm anterior to posterior, and over 4 cm from medial to lateral. There is also a transverse oblique fracture through the base of the medial malleolus. No evidence of posterior malleolar fracture. -No distal fibular fracture. -No evidence of talar, calcaneal, or other hindfoot or visualized midfoot fracture. -Internal fixation of the posteromedial distal tibial diaphysis with the posteromedial plate and numerous screws. Hardware is well seated. -External fixation hardware in place, with traversing screws across the posterior body of the distal calcaneus. Hardware is well seated with no evidence of loosening. -Multiple ossific fragments along the posterior and medial aspects of the distal tibia, and along the lateral and inferior aspects of the distal fibula. JOINTS: -Normal alignment with no subluxation or dislocation. -Mild degenerative hypertrophic spurring along the dorsal aspect of the talonavicular joint. SOFT TISSUES: -Soft tissue edema/swelling throughout the lower calf. Small amount of air medially and posteriorly, and within the tibiotalar joint space. Procedure Note Paddy Hou MD - 10/17/2023 For Patients: As a result of the Century Cures Act, medical imagingexams and procedure reports are released immediately into your electronicmedical record. You may view this report before your referring provider.If you have questions, please contact your health care provider. EXAM: CT ANKLE LEFT WO LOCATION: [facility] DATE: 10/17/2023 INDICATION: Fracture evaluation status post external fixation. COMPARISON: None. TECHNIQUE: Noncontrast. Axial, sagittal and coronal thin-sectionreconstruction. Dose reduction techniques were used. FINDINGS: BONES: -Comminuted distal tibial fractures (pilon fracture). This includes aprimary longitudinal vertical fracture in the coronal plane. There istransverse fracture extension into the anterior cortex at the level of thedistal diaphysis. There is mild comminution at the level of the tibiotalarjoint, including a dye punch fracture component, which results in anarticular surface defect that measures up to 10 mm anterior to posterior,and over 4 cm from medial to lateral. There is also a transverse obliquefracture through the base of the medial malleolus. No evidence ofposterior malleolar fracture. -No distal fibular fracture. -No evidence of talar, calcaneal, or other hindfoot or visualized midfootfracture. -Internal fixation of the posteromedial distal tibial diaphysis with theposteromedial plate and numerous screws. Hardware is well seated. -External fixation hardware in place, with traversing screws across theposterior body of the distal calcaneus. Hardware is well seated with noevidence of loosening. -Multiple ossific fragments along the posterior and medial aspects of thedistal tibia, and along the lateral and inferior aspects of the distalfibula. JOINTS: -Normal alignment with no subluxation or dislocation. -Mild degenerative hypertrophic spurring along the dorsal aspect of thetalonavicular joint. SOFT TISSUES: -Soft tissue edema/swelling throughout the lower calf. Small amount of airmedially and posteriorly, and within the tibiotalar joint space. IMPRESSION: 1. Comminuted distal tibial fractures (pilon fracture), with a primarylongitudinal fracture in the coronal plane, extending to the tibialarticular surface in the tibiotalar joint. There is a punch fragmentat the articular surface, resulting in an articular surface defect thatmeasures approximately 1 cm anterior to posterior and 4 cm medial tolateral. 2. Internal fixation plate and screws along the posteromedial aspect ofthe distal tibial diaphysis. This partially fixates the previouslydescribed longitudinal fracture. No evidence of hardware loosening orother complication. 3. Transverse oblique fracture across the base of the medial malleolus. 4. No fibular fracture visualized. If clinically appropriate and not yetpreviously performed, would recommend tibia/fibular radiographs to ensureno proximal fibular fracture/Maisonneuve fracture. 5. External fixation hardware in place, with traversing screws across theposterior body of the calcaneus. No evidence of complication. 6. Soft tissue swelling, edema, and air in the lower calf and ankle. Shailesh LOUIS CT * XR C-ARM GREATER 1 HR (10/17/2023 4:06 PM [employer]) Narrative Silent, Sched - 10/17/2023 4:07 PM [employer] The result for this exam is either scanned and attached to this order or are included in the ordering provider's NOTES from the patient's Office Visit or Surgical procedure from this date. Ariel Garner DO FLUOROSCOPY * XR ANKLE 2 VIEWS LEFT (10/17/2023 4:06 PM [employer]) Anatomical Region Laterality Modality ANKLES, ANKLE L Digital Radiogra phy 10/17/2023 4:06 PM [employer] Impressions 10/17/2023 4:20 PM [employer] C-arm used for an orthopedic procedure. 3 minutes and 38 seconds of fluoroscopy time used during the course of the study. 17 images obtained which demonstrate screw and plate fixation of the distal tibial diaphysis and traction pin placement in the calcaneus. Narrative 10/17/2023 4:20 PM [employer] For Patients: As a result of the Cures Act, medical imaging exams and procedure reports are released immediately into your electronic medical record. You may view this report before your referring provider. If you have questions, please contact your health care provider. EXAM: XR ANKLE 2 VIEWS LEFT LOCATION: [facility] DATE: 10/17/2023 INDICATION: Pain. COMPARISON: None. Procedure Note Paras Francisco MD - 10/17/2023 For Patients: As a result of the Cures Act, medical imagingexams and procedure reports are released immediately into your electronicmedical record. You may view this report before your referring provider.If you have questions, please contact your health care provider. EXAM: XR ANKLE 2 VIEWS LEFT LOCATION: [facility] DATE: 10/17/2023 INDICATION: Pain. COMPARISON: None. IMPRESSION: C-arm used for an orthopedic procedure. 3 minutes and 38 seconds offluoroscopy time used during the course of the study. 17 images obtainedwhich demonstrate screw and plate fixation of the distal tibial diaphysisand traction pin placement in the calcaneus. Ariel Garner DO GENERAL IMAGING * HCHG TUBE PR1, HCHG STYLET PR1 (10/17/2023 2:41 PM [employer]) Narrative Doyle Hodgson CRNA - 10/17/2023 2:41 PM [employer] Doyle Hodgson CRNA ? 10/17/2023 ??2:42 PM Procedure: ETT Patient location during procedure: OR ETT Properties Mask Ventilation: not attempted Final Technique: direct laryngoscopy Type: straight Location: oral Cuffed: yes Tube Size: 7.5 mm Stylet: yes Laryngoscope Blade: Soto Blade Size: 2 Cormack-Lehane Grade View: 2 Insertion Attempts: 1 Placement Verification: auscultation, end tidal CO2 and symmetrical chest wall movement Assessment: pharynx clear, atraumatic and dentition unchanged Secured at: 22 Measured From: teeth Difficulty: 0 (not difficult) Gage Gama MD ANESTHESIA PX NOTE ORDERABLES * Type and Screen (10/17/2023 4:10 AM [employer]) Pathologist [facility] ABORH A Rh Negative 10/17/2023 5:12 AM [employer] [facility] BLOOD BANK ANTIBODY SCREEN Negative Negative 10/17/2023 5:12 AM [facility] B[facility]OD B[facility] SPECIMEN EXPIRATION DATE/TIME 10/20/23 23:59 10/17/2023 5:12 AM [facility] BLOOD BANK Blood BLOOD SPECIMEN / Unknown Non-Lab Venipuncture / Unknown 10/17/2023 4:10 AM [employer] 10/17/2023 4:23 AM [employer] Lexie Aiken MD BLOOD BANK [facility] BLOOD BANK [address] [place] [address] * SCAN-CARDIAC STRIP (10/17/2023 12:00 AM [employer]) Narrative 10/17/2023 12:00 AM [employer] Ordered by an unspecified provider. Other Clinical Staff OTHER * SPLINT APPLICATION (10/16/2023 9:28 PM [employer]) Narrative Nickie Montes De Oca PA - 10/16/2023 9:28 PM [employer] Nickie Montes De Oca PA ? 10/17/2023 10:58 AM SPLINT APPLICATION Date/Time: 10/16/2023 9:28 PM Performed by: Nickie Montes De Oca PA Authorized by: Nickie Montes De Oca PA ?? Consent: ??Consent obtained: ??Verbal ??Consent given by: ??Patient ??Risks discussed: ??Discoloration, numbness, pain and swelling Pre-procedure details: ??Distal neurologic exam: ??Normal ??Distal perfusion: distal pulses strong and brisk capillary refill ?? Procedure details: ??Location: ??Ankle ??Ankle location: ??L ankle ??Cast type: ??Short leg ??Splint type: ??Short leg ??Supplies: ??Elastic bandage and cotton padding (orthoglass) ??Attestation: Splint applied and adjusted personally by me ?? Post-procedure details: ??Distal neurologic exam: ??Normal ??Distal perfusion: distal pulses strong ?Procedure completion: ??Tolerated well, no immediate complications ??Post-procedure imaging: not applicable ?? Nickie LOUIS PROCEDURE ORD * XR SPINE LUMBAR 2 VIEWS (10/16/2023 8:43 PM [employer]) Anatomical Region Laterality Modality LUMBAR SPINE Digital Radiogra phy Nickie LOUIS GENERAL IMAGING * XR PELVIS 1 VIEW (10/16/2023 8:43 PM [employer]) Anatomical Region Laterality Modality Pelvis Digital Radiogra phy Nickie LOUIS GENERAL IMAGING * XR FOOT 3 VIEWS LEFT (10/16/2023 5:24 PM [employer]) Anatomical Region Laterality Modality FEET, FOOT L Digital Radiogra phy Nickie [facility] * CT SPINE CERVICAL WO (10/16/2023 5:19 PM [employer]) Anatomical Region Laterality Modality CERVICAL SPINE, NECK, Spine Comp uted Tomography Nickie LOU[facility] CT * CT HEAD BRAIN WO (10/16/2023 5:18 PM [employer]) Anatomical Region Laterality Modality HEAD, BRAIN Computed Tomogra phy Nickie LOUIS CT * CRITICAL CARE PROVIDED (10/16/2023 5:01 PM [employer]) Narrative Nickie Montes De Oca PA - 10/16/2023 5:01 PM [employer] Nickie Montes De Oca PA ? 10/17/2023 10:58 AM CRITICAL CARE PROVIDED Performed by: Nickie Montes De Oca PA Authorized by: Nickie Montes De Oca PA ?? Critical care provider statement: ??Critical care time (minutes): ??40 ??Critical care time was exclusive of: ??Separately billable procedures and treating other patients and teaching time ??Critical care was necessary to treat or prevent imminent or life-threatening deterioration of the following conditions: ??Trauma ??Critical care was time spent personally by me on the following activities: ??Development of treatment plan with patient or surrogate, discussions with consultants, evaluation of patient's response to treatment, examination of patient, obtaining history from patient or surrogate, ordering and performing treatments and interventions, ordering and review of laboratory studies, re-evaluation of patient's condition and review of old charts ??I assumed direction of critical care for this patient from another provider in my specialty: no ?Care discussed with: accepting provider at another facility ?? Nickie LOUIS PROCEDURE ORD from Last 3 Months Advance Directives * Full Code (Latest Code Status on File) Date Activated Date Inactivated Comments 10/17/2023 3:04 AM 10/29/2023 4:23 PM Question Answer Comments Code Status Discussion: Other Care Teams [employer] Relationship Specialty Start Date End Date Pcp, No . PCP - General 04/09/15
== END 2024-01-05 13:51 | disposition home or self-care (01) ==
LOC: WOUND 13:50
PROVIDERS: PCP Family Medicine; Visit Provider Nurse Practitioner Family
DX: E11.621 Type 2 diabetes mellitus with foot ulcer (principal); L89.894 Pressure ulcer of other site, stage 4; E11.622 Type 2 diabetes mellitus with other skin ulcer; L97.828 Non-pressure chronic ulcer of other part of left lower leg with other specified severity; I10 Essential (primary) hypertension; Z96.698 Presence of other orthopedic joint implants; Z79.84 Long term (current) use of oral hypoglycemic drugs
CPT/HCPCS: 11042; 11043; 87070; G0463

== ENCOUNTER 2024-01-12 10:52 | Outpatient (CLI) | payer OTHER, MEDICARE, SELFPAY ==
--- OUTSIDE RECORDS SUMMARY | 2024-01-12 10:54 | XMS_ITS | Clinical Summary ---
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 Max acetaminophen dose: 4000mg in 24 hrs. 10/24/2023 Active ibuprofen (ADVIL; MOTRIN) 200 mg tabletIndications:Cl osed nondisplaced pilon fracture of left tibia, initial encounter Take 1 Tablet (200 mg) by mouth every 6 hours if needed for Pain (mild to moderate pain). 10/24/2023 Active polyethylene glycol (MIRALAX; GLYCOLAX) 17 g per packet packetIndications:Cl osed nondisplaced pilon fracture of left tibia, initial encounter Mix 17 g in liquid then take by mouth once daily. 10/25/2023 Active sennosides-docusate (SENOKOT S) (8.6-50 mg) tabletIndications:Cl osed nondisplaced pilon fracture of left tibia, initial encounter Take 2 Tablets by mouth two times daily. 10/24/2023 Active lisinopril-hydrochlo rothiazide (10-12.5 mg) tablet (PRINZIDE; ZESTORETIC)Indicatio ns:Essential hypertension Take 1 Tablet by mouth once daily. Hold for Systolic blood pressure less than 120 10/25/2023 Active oxyCODONE (ROXICODONE) 5 mg immediate release tabletIndications:Cl osed nondisplaced pilon fracture of left tibia, initial encounter Take 1 Tablet (5 mg) by mouth every 6 hours if needed for Pain (for moderate to severe pain). Avoid use with other narcotics. 25 Tablet 10/28/2023 Active metFORMIN (GLUCOPHAGE XR) 500 mg Extended-Release tabletIndications:ty pe 2 diabetes mellitus Take 1 Tablet (500 mg) by mouth two times daily with meals. 10/29/2023 Active glimepiride (AMARYL) 4 mg tabletIndications:ty pe 2 diabetes mellitus Take 1 Tablet (4 mg) by mouth once daily with a meal. 10/29/2023 Active crutchIndications:Pi hiren fracture of left tibia, closed, initial encounter For home use. 2 Each 11/07/2023 Active durable medical equipment (DME)Indications:Aft ercare following surgery of the musculoskeletal system 4 wheel walker with seat and basket 1 Each 11/10/2023 Active durable medical equipment (DME)Indications:Aft ercare following surgery of the musculoskeletal system Bench for shower 1 Each 11/10/2023 Active methocarbamoL (ROBAXIN) 500 mg tabletIndications:Cl osed nondisplaced pilon fracture of left tibia, initial encounter Take 1 Tablet (500 mg) by mouth every 8 hours if needed for Muscle Spasm by mouth 1st choice. 90 Tablet 11/20/2023 Active ondansetron (Zofran) 4 mg tabletIndications:Na usea Take 1 Tablet (4 mg) by mouth every 8 hours if needed for Nausea/Vomiting. 10 Tablet 11/20/2023 Active durable medical equipment (DME)Indications:Aft ercare following surgery of the musculoskeletal system Airselect Standard, Large 12/25/2023 Active trimethoprim-sulfame thoxazole, 160-800 mg, (Bactrim DS) tabIndications:After care following surgery of the musculoskeletal system Take 1 Tablet by mouth two times daily for 14 days. 28 Tablet 12/25/2023 Active Problems Problem Noted Date Diagnosed Date S/P Open reduction internal fixation of the Left pilon fracture 11/10/2023 DM II (diabetes mellitus, type II), controlled 0 10/18/2023 Fall from ladder 10/17/2023 Tibia fracture 10/17/2023 No active medical problems 09/19/2011 Encounters Date Type Department Care Team Description 12/29/2023 Telephone [facility] [address] [place] [address] Ariel Garner, 12/25/2023 1:30 PM CDT Ancillary Procedure [facility] [address] [place] [address] 12/25/2023 1:00 PM CDT Office Visit [facility] [address] [place] [address] Ariel Garner, DO Musculoskeletal Problem (S/P Open reduction internal fixation of the??Left??pilon fracture, Removal of external fixator under anesthesia by Dr. Garner) 12/25/2023 Travel 11/20/2023 12:05 PM WARRANT CLERK Ancillary Procedure [facility] [address] [place] [address] 11/20/2023 11:45 AM WARRANT CLERK Office Visit [facility] [address] [place] [address] Shailesh Granados PA Surgical Followup (S/P Open reduction internal fixation of the Left pilon fracture, Removal of external fixator) 11/20/2023 Travel 11/10/2023 Telephone [facility] [address] [place] [address] Ariel Garner, DO DME Supply ([employer] ) 11/09/2023 Telephone [facility] [address] [place] [address] Ariel Garner, DO Appointment 11/07/2023 Telephone [facility] [address] [place] [address] Karely Alston NP 10/27/2023 10:19 AM WARRANT CLERK - 10/27/2023 1:36 PM WARRANT CLERK Surgery [place] [address] [facility] [place] [address] Ariel Garner, OPEN REDUCTION INTERNAL FIXATION OF LEFT DISTAL TIBIA FRACTURE AND REMOVAL OF EXTERNAL FIXATOR 10/27/2023 9:50 AM WARRANT CLERK Anesthesia Event [place] [id number] [place] [address] Desean Young, RONY 10/24/2023 Telephone [facility] [place] [address] [place] [address] Ariel Garner, Questions (CALL BACK ) 10/21/2023 Travel 10/19/2023 Travel 10/17/2023 2:04 PM WARRANT CLERK Anesthesia Event [address] [place] [address] Gage Gama MD Johnson, Marcelino Collier MD 10/17/2023 12:24 PM WARRANT CLERK - 10/17/2023 3:08 PM WARRANT CLERK Surgery [address] [address] Ariel Garner, APPLICATION EXTERNAL FIXATOR LEFT ANKLE, LIMITED OPEN REDUCTION AND INTERNAL FIXATION OF TIBIA FRACTURE 10/17/2023 12:29 AM WARRANT CLERK - 10/29/2023 2:12 PM WARRANT CLERK Hospital Encounter [address] [address] Johnny Gutierrez MD Service, Core Trauma Jonas Olivarez, Closed nondisplaced pilon fracture of left tibia, initial encounter (Primary Dx); Essential hypertension; Controlled type 2 diabetes mellitus without complication, without long-term current use of insulin (HC) Discharge Disposition: Longterm Facility 10/16/2023 4:43 PM WARRANT CLERK - 10/16/2023 11:00 PM WARRANT CLERK Emergency [facility] [address] [place] [address] Gedde, HERIBERTO Bhatia Sean Malloy, MD Pilbebeto fracture of left tibia, closed, initial encounter [...] Comments Blood Pressure 131/88 10/29/2023 7:44 AM WARRANT CLERK Pulse 97 10/29/2023 7:44 AM WARRANT CLERK Temperature 36.9 ??C (98.4 ??F) 10/29/2023 7:44 AM CS T Respiratory Rate 16 10/29/2023 7:44 AM WARRANT CLERK Oxygen Saturation 98% 10/29/2023 7:44 AM WARRANT CLERK Inhaled Oxygen Concentration - - Weight 113.5 kg (250 lb 3.6 oz) 10/27/2023 4:36 AM WARRANT CLERK Height 182.9 cm (6') 10/17/2023 12:55 PM WARRANT CLERK Body Mass Index 33.94 10/17/2023 12:55 PM WARRANT CLERK Plan of Treatment Upcoming Encounters Date Type Department Care Team (Late st Contact Info) Description 01/15/2024 9:45 AM CDT Office Visit [facility] [place] [address] [place], [place] [address] [place] [address] [facility] [address] [place] [address] Health Maintenance Due Date Last Done Comments [...] Completed 10/18/2023 Medical Devices Implanted Type Area [employer] Operations Man Device Identifier Shelf Expiration Date Model / Serial / Lot Screw Bone 2.4x30mm Evos Cortex T7 S-T - [id number] Implanted:Qty: 2 on 10/27/2023 by Ariel Garner DO at [facility] Left: Leg [employer] [id number] / / Description:Sticker sheet no t received for this case Screw Bone 3.5x65mm Evos Small Cortex Slf Tppng - [id number] Implanted:Qty: 1 on 10/27/2023 by Ariel Garner DO at [facility] Left: Leg [employer] [id number] / / Description:Sticker sheet no t received for this case Screw Bone 2.7x40mm Evos T8 Slf Tppng - [id number] Implanted:Qty: 2 on 10/27/2023 by Ariel Garner DO at [facility] Left: Leg [employer] [id number] / / Description:Sticker sheet no t received for this case Screw Bone 2.7x44mm Evos T8 Slf Tppng - [id number] Implanted:Qty: 2 on 10/27/2023 by Ariel Garner DO at [facility] Left: Leg [employer] [id number] / / Description:Sticker sheet no t received for this case Screw Bone 2.7x46mm Evos T8 Slf Tppng - [id number] Implanted:Qty: 1 on 10/27/2023 by Ariel Garner DO at [facility] Left: Leg [employer] [id number] / / Description:Sticker sheet no t received for this case Screw Bone 2.7x38mm Evos T8 Slf Tppng - [id number] Implanted:Qty: 1 on 10/27/2023 by Ariel Garner DO at [facility] Left: Leg [employer] [id number] / / Description:Sticker sheet no t received for this case Screw Bone 3.5x42mm Evos Small Cortex Slf Tppng - [id number] Implanted:Qty: 3 on 10/27/2023 by Ariel Garner DO at [facility] Left: Leg [employer] [id number] / / Description:Sticker sheet no t received for this case Screw Bone 3.5x85mm Evos Small Cortex Slf Tppng - [id number] Implanted:Qty: 1 on 10/27/2023 by Ariel Garner DO at [facility] Left: Leg [employer] [id number] / / Description:Sticker sheet no t received for this case Screw Bone 3.5x24mm Evos Small Cortex Slf Tppng - [id number] Implanted:Qty: 1 on 10/27/2023 by Ariel Garner DO at [facility] Left: Leg [employer] [id number] / / Description:Sticker sheet no t received for this case Explanted Type Area [employer] Operations Man Device Identifier Shelf Expiration Date Model / Serial / Lot K-Wire 1.5m285cd St-St - [id number] Explanted:Qty: 1 on 10/17/2023 by Ariel Garner DO at [facility] Left: Leg [employer] [id number] / / Screw Sm Joint 3.5x30mm Variax 2 Bone - [id number] Implanted:Qty: 3 on 10/17/2023 by Ariel Garner DO at [facility] Explanted:Qty: 3 on 10/27/2023 by Ariel Garner DO at [facility] Left: Leg [employer] [id number] / / Plate 71mm 6 Hole One-Third Tubular - [id number] Implanted:Qty: 1 on 10/17/2023 by Ariel Garner DO at [facility] Explanted:Qty: 1 on 10/27/2023 by Ariel Garner DO at [facility] Left: Leg [employer] [id number] / / Pin Sm Joint [id number] Curtis Slf Tppng St-St - [id number] Implanted:Qty: 2 on 10/17/2023 by Ariel Garner DO at [facility] Explanted:Qty: 2 on 10/27/2023 by Ariel Garner DO at [facility] Left: Leg [employer] 5018-6-200 / / Parveen Sm Joint [id number] Hoffman3 - [id number] Implanted:Qty: 1 on 10/17/2023 by Ariel Garner DO at [facility] Explanted:Qty: 1 on 10/27/2023 by Ariel Garner DO at [facility] Left: Leg [employer] 4922-8-350 / / Parveen Sm Joint [id number] Hoffman3 - [id number] Implanted:Qty: 1 on 10/17/2023 by Ariel Garner DO at [facility] Explanted:Qty: 1 on 10/27/2023 by Ariel Garner, DO at [facility] Left: Leg [employer] 4922-8-400 / / Clamp Sm Joint Roche 3 2 Post 30 Deg - [id number] Implanted:Qty: 1 on 10/17/2023 by Ariel Garner, DO at [facility] Explanted:Qty: 1 on 10/27/2023 by Ariel Garner, DO at [facility] Left: Leg [employer] 4922-2-240 / / Coupling Sm Joint 5/8/11mm Roche 3 Parveen To Parveen - [id number] Implanted:Qty: 4 on 10/17/2023 by Ariel Garner, DO at [facility] Explanted:Qty: 4 on 10/27/2023 by Ariel Garner, DO at [facility] Left: Leg [employer] 4922-1-010 / / Screw Sm Joint 3.5x28mm Variax 2 Bone - [id number] Implanted:Qty: 1 on 10/17/2023 by Ariel Garner, DO at [facility] Explanted:Qty: 1 on 10/27/2023 by Ariel Garner, at [facility] Left: Leg [employer] [id number] / / Procedures Procedure Name Priority Date/Time Associated Diagnosis Comments XR ANKLE 3 VIEWS LEFT Routine 12/25/2023 1:41 PM CDT S/P Open reduction internal fixation of the??Left??pilon fracture, Removal of external fixator under anesthesia by Dr. Garner XR ANKLE 3 VIEWS LEFT Routine 11/20/2023 12:15 PM WARRANT CLERK S/P Open reduction internal fixation of the??Left??pilon fracture, Removal of external fixator under anesthesia by Dr. Garner GLUCOSE METER Timed 10/29/2023 11:15 AM WARRANT CLERK HEMOGLOBIN Early AM 10/29/2023 6:27 AM WARRANT CLERK CREATININE Early AM 10/29/2023 6:27 AM WARRANT CLERK POTASSIUM Early AM 10/29/2023 6:27 AM WARRANT CLERK SODIUM Early AM 10/29/2023 6:27 AM WARRANT CLERK HEMOGLOBIN A1C LINDSEY 10/28/2023 10:29 PM WARRANT CLERK HEMOGLOBIN A1C SCREENING Early AM 10/28/2023 10:29 PM WARRANT CLERK GLUCOSE METER Timed 10/28/2023 9:45 PM WARRANT CLERK GLUCOSE METER Timed 10/28/2023 5:54 PM WARRANT CLERK GLUCOSE METER Timed 10/28/2023 11:51 AM WARRANT CLERK GLUCOSE METER Timed 10/28/2023 7:24 AM WARRANT CLERK HEMOGLOBIN Early AM 10/28/2023 6:42 AM WARRANT CLERK GLUCOSE METER Timed 10/27/2023 9:24 PM WARRANT CLERK GLUCOSE METER Timed 10/27/2023 5:15 PM WARRANT CLERK XR C-ARM EQUAL OR GREATER 4 HR Routine 10/27/2023 3:23 PM WARRANT CLERK XR TIBIA AND FIBULA 2 VIEWS LEFT Routine 10/27/2023 3:23 PM WARRANT CLERK ENDOTRACHEAL TUBE Routine 10/27/2023 10: 07 AM WARRANT CLERK ENDOTRACHEAL TUBE Routine 10/27/2023 10: 07 AM WARRANT CLERK OPEN REDUCTION INTERNAL FIXATION TIBIA FIBULA 10/27/2023 9:34 AM WARRANT CLERK LEFT DISTAL TIBIA FRACTURE Case Notes NO CIED, 248 LBS, ROSE AND NEPHEW DISTAL TIBIA PLATES, ROSE AND NEPHEW EVOS MINI, C-ARM, JENNIFER CLAMPS, GELPI, REGULAR TABLE Jv Nathan [phone] notified of case 10/27 1019 (10/24 annette) PERIPHERAL BLOCK Routine 10/27/2023 9:17 AM WARRANT CLERK GLUCOSE METER Timed 10/27/2023 7:52 AM WARRANT CLERK GLUCOSE METER Timed 10/26/2023 9:15 PM WARRANT CLERK GLUCOSE METER Timed 10/26/2023 5:03 PM WARRANT CLERK GLUCOSE METER Timed 10/26/2023 11:51 AM WARRANT CLERK GLUCOSE METER Timed 10/26/2023 8:19 AM WARRANT CLERK GLUCOSE METER Timed 10/25/2023 9:27 PM WARRANT CLERK GLUCOSE METER Timed 10/25/2023 3:38 PM WARRANT CLERK GLUCOSE METER Timed 10/25/2023 11:56 AM WARRANT CLERK GLUCOSE METER Timed 10/25/2023 8:07 AM WARRANT CLERK GLUCOSE METER Timed 10/24/2023 9:54 PM WARRANT CLERK GLUCOSE METER Timed 10/24/2023 5:18 PM WARRANT CLERK GLUCOSE METER Timed 10/24/2023 11:51 AM WARRANT CLERK GLUCOSE METER Timed 10/24/2023 8:28 AM WARRANT CLERK BASIC METABOLIC PANEL Early AM 10/24/2023 6:39 AM WARRANT CLERK GLUCOSE METER Timed 10/23/2023 9:53 PM WARRANT CLERK GLUCOSE METER Timed 10/23/2023 5:10 PM WARRANT CLERK GLUCOSE METER Timed 10/23/2023 12:03 PM WARRANT CLERK GLUCOSE METER Timed 10/23/2023 7:32 AM WARRANT CLERK GLUCOSE METER Timed 10/22/2023 10:20 PM WARRANT CLERK GLUCOSE METER Timed 10/22/2023 4:16 PM WARRANT CLERK GLUCOSE METER Timed 10/22/2023 11:59 AM WARRANT CLERK GLUCOSE METER Timed 10/22/2023 7:27 AM WARRANT CLERK CBC WITH AUTO DIFFERENTIAL Early AM 10/22/2023 7:17 AM WARRANT CLERK CBC WITH AUTO DIFFERENTIAL Early AM 10/22/2023 7:17 AM WARRANT CLERK BASIC METABOLIC PANEL Early AM 10/22/2023 7:17 AM WARRANT CLERK GLUCOSE METER Timed 10/21/2023 9:37 PM WARRANT CLERK GLUCOSE METER Timed 10/21/2023 4:23 PM WARRANT CLERK GLUCOSE METER Timed 10/21/2023 12:53 PM WARRANT CLERK GLUCOSE METER Timed 10/21/2023 7:31 AM WARRANT CLERK BASIC METABOLIC PANEL Early AM 10/21/2023 7:17 AM WARRANT CLERK GLUCOSE METER Timed 10/20/2023 9:16 PM WARRANT CLERK GLUCOSE METER Timed 10/20/2023 4:46 PM WARRANT CLERK GLUCOSE METER Timed 10/20/2023 11:23 AM WARRANT CLERK GLUCOSE METER Timed 10/20/2023 7:56 AM WARRANT CLERK CBC WITH AUTO DIFFERENTIAL Early AM 10/20/2023 6:21 AM WARRANT CLERK CBC WITH AUTO DIFFERENTIAL Early AM 10/20/2023 6:21 AM WARRANT CLERK BASIC METABOLIC PANEL Early AM 10/20/2023 6:21 AM WARRANT CLERK GLUCOSE METER Timed 10/19/2023 5:33 PM WARRANT CLERK INFLUENZA A/B PCR Today 10/19/2023 1:3 6 PM WARRANT CLERK COVID-19 MOLECULAR Today 10/19/2023 1: 36 PM WARRANT CLERK GLUCOSE METER Timed 10/19/2023 12:24 PM WARRANT CLERK XR ABDOMEN 1 VIEW PORTABLE Routine 10/19/2023 11:31 AM WARRANT CLERK GLUCOSE METER Timed 10/19/2023 8:30 AM WARRANT CLERK GLUCOSE METER Timed 10/18/2023 10:19 PM WARRANT CLERK GLUCOSE METER Timed 10/18/2023 12:09 PM WARRANT CLERK GLUCOSE METER Timed 10/18/2023 9:[address] ANKLE LEFT WO STAT 10/17/2023 6:13 PM WARRANT CLERK XR C-ARM GREATER 1 HR STAT 10/17/2023 4:06 PM WARRANT CLERK XR ANKLE 2 VIEWS LEFT STAT 10/17/2023 4:06 PM WARRANT CLERK ENDOTRACHEAL TUBE Routine 10/17/2023 2:4 1 PM WARRANT CLERK ENDOTRACHEAL TUBE Routine 10/17/2023 2:4 1 PM WARRANT CLERK APPLICATION EXTERNAL FIXATOR LOWER EXTREMITY 10/17/2023 1:48 PM WARRANT CLERK Ankle Fracture Case Notes DEREK TYPE & SCREEN STAT 10/17/2023 4:10 AM WARRANT CLERK CREATININE LINDSEY 10/17/2023 3:20 AM WARRANT CLERK SCAN-CARDIAC STRIP 10/17/2023 12 :00 AM WARRANT CLERK SPLINT APPLICATION Routine 10/16/2023 9: 28 PM WARRANT CLERK XR SPINE LUMBAR 2 VIEWS STAT 10/16/2023 8:43 PM WARRANT CLERK XR PELVIS 1 VIEW STAT 10/16/2023 8:43 PM WARRANT CLERK XR TIBIA AND FIBULA 2 VIEWS LEFT STAT 10/16/2023 6:22 PM WARRANT CLERK XR FOOT 3 VIEWS LEFT STAT 10/16/2023 5:24 PM WARRANT CLERK XR ANKLE 3 VIEWS LEFT STAT 10/16/2023 5:[address] SPINE CERVICAL WO STAT 10/16/2023 5:[address] HEAD BRAIN WO STAT 10/16/2023 5:18 PM WARRANT CLERK CRITICAL CARE PROVIDED Routine 10/16/2023 5:01 PM WARRANT CLERK from Last 3 Months Results * XR [...] This radiology exam was performed at the [facility] Orthopedic Radiology Department in [facility] and interpreted by Dr. Ariel [...] * (ABNORMAL) GLUCOSE METER (10/29/2023 11:15 AM WARRANT CLERK) Only the most recent of42 resultswithin the time period is included. GLUCOSE METER 174(H) 65 - 100 mg/dL 10/29/2023 11:25 AM WARRANT CLERK [facility] Blood BLOOD SPECIMEN / Unknown 10/29/2023 11:15 AM WARRANT CLERK 10/29/2023 11:25 AM WARRANT CLERK Core Trauma Service CHEMISTRY [facility] INTERNAL [facility] [id number] [address] [place] [address] * (ABNORMAL) HEMOGLOBIN (10/29/2023 6:27 AM WARRANT CLERK) Only the most recent of2 resultswithin the time period is included. HEMOGLOBIN 11.2(L) 13.5 - 17.5 g/dL 10/29/2023 6:41 AM WARRANT CLERK [facility] MCV 87 80 - 100 fL 10/29/2023 6:41 AM WARRANT CLERK [facility] Blood BLOOD SPECIMEN / Unknown Butterfly / Unknown 10/29/2023 6:27 AM WARRANT CLERK 10/29/2023 6:38 AM WARRANT CLERK Viki Alejandra Nosek DO HEMATOLOGY [facility] INTERNAL ZIP [phone] [facility] [address] * SODIUM (10/29/2023 6:27 AM WARRANT CLERK) SODIUM 136 136 - 145 mmol/L 10/29/2023 7:06 AM WARRANT CLERK [facility] Blood BLOOD SPECIMEN / Unknown Butterfly / Unknown 10/29/2023 6:27 AM WARRANT CLERK 10/29/2023 6:38 AM WARRANT CLERK Viki Dobbs DO CHEMISTRY [facility] INTERNAL ZIP [address] [address] [facility] [address] * POTASSIUM (10/29/2023 6:27 AM WARRANT CLERK) POTASSIUM 4.1 3.5 - 5.1 mmol/L 10/29/2023 7:06 AM [facility] Blood BLOOD SPECIMEN / Unknown Butterfly / Unknown 10/29/2023 6:27 AM WARRANT CLERK 10/29/2023 6:38 AM WARRANT CLERK Viki Dobbs DO CHEMISTRY [facility] INTERNAL ZIP [address] [address] [place] [address] * (ABNORMAL) CREATININE (10/29/2023 6:27 AM WARRANT CLERK) Only the most recent of2 resultswithin the time period is included. eGFR 84(L) >90 mL/min/1.7 3m2 10/29/2023 7:06 AM [facility] Comment:As of 2021, eG FR is calculated by the CKD-EPI creatinine equation without race adjustment. ??eGFR can be influenced by muscle mass, exercise, and diet. ??The reported eGFR is an estimation only and is only applicable if the renal function is stable. CREATININE 0.97 0.70 - 1.20 mg/dL 10/29/2023 7:06 AM WARRANT CLERK [facility] Blood BLOOD SPECIMEN / Unknown Butterfly / Unknown 10/29/2023 6:27 AM WARRANT CLERK 10/29/2023 6:38 AM WARRANT CLERK Viki Dobbs DO CHEMISTRY [facility] INTERNAL ZIP [address] [address] [place] [address] * (ABNORMAL) HEMOGLOBIN A1C SCREENING (10/28/2023 10:29 PM WARRANT CLERK) HEMOGLOBIN A1C SCREENING 8.2(H) <=6.4 % 10/29/2023 11:02 AM WARRANT CLERK [facility] Blood BLOOD SPECIMEN / Unknown Venipuncture / Unknown 10/28/2023 10:29 PM WARRANT CLERK 10/28/2023 10:31 PM WARRANT CLERK Narrative [facility] - 10/29/2023 11:02 AM WARRANT CLERK ? (<5.7%) ?Normal ? (5.7% to 6.4%) ? Indicates prediabetes ? (>=6.5%) ? Confirms diabetes Falsely low levels may be seen with: Recent Transfusion, Recent Significant Blood Loss, Hemolytic Diseases, or Falsely elevated levels may be seen with: Untreated Anemias, Splenectomy Alexa Jacome ENGRAVER LETTER [facility] [address] [place] [address], * (ABNORMAL) HEMOGLOBIN A1C MONITORING (POCT) (10/28/2023 10:29 PM WARRANT CLERK) HEMOGLOBIN A1C MONITORING (POCT) 8.1(H) <=6.4 % 10/29/2023 8:15 AM WARRANT CLERK [facility] Blood BLOOD SPECIMEN / Unknown Venipuncture / Unknown 10/28/2023 10:29 PM WARRANT CLERK 10/28/2023 10:31 PM WARRANT CLERK Narrative [facility] - 10/29/2023 8:15 AM WARRANT CLERK ? (<=6.9%) ? Indicates good control ? (7.0% to 7.9%) ? Indicates fair control ? (>=8.0%) ? Indicates poor control ?? NOTE: ??These thresholds are guidelines and ?individual targets may vary. Falsely low levels may be seen with: Recent Transfusion, Recent Significant Blood Loss, Hemolytic Diseases, or Falsely elevated levels may be seen with: Untreated Anemias, Splenectomy ? Ariel Garner DO CHEMISTRY [facility] [address] [place] [address], * XR C-ARM EQUAL OR GREATER 4 HR (10/27/2023 3:23 PM WARRANT CLERK) Narrative Silent, Sched - 10/27/2023 3:24 PM WARRANT CLERK The result for this exam is either scanned and attached to this order or are included in the ordering provider's NOTES from the patient's Office Visit or Surgical procedure from this date. Ariel Garner DO FLUOROSCOPY * XR TIBIA AND FIBULA 2 VIEWS LEFT (10/27/2023 3:23 PM WARRANT CLERK) Only the most recent of2 resultswithin the time period is included. Anatomical Region Laterality Modality Tibia Digital Radiogra phy 10/27/2023 3:23 PM WARRANT CLERK Narrative 10/27/2023 3:38 PM WARRANT CLERK For Patients: As a result of the Cures Act, medical imaging exams and procedure reports are released immediately into your electronic medical record. You may view this report before your referring provider. If you have questions, please contact your health care provider. [facility] XR TIBIA AND FIBULA 2 VIEWS LEFT ?? 10/27/2023 3:23 PM WARRANT CLERK INDICATION: Intraoperative fracture fixation FLUOROSCOPIC TIME: 556 [...] questions, please contact your health care provider. [facility] XR TIBIA AND FIBULA 2 VIEWS LEFT 10/27/2023 3:23 PM WARRANT CLERK INDICATION: Intraoperative fracture fixation FLUOROSCOPIC TIME: 556 seconds NUMBER OF IMAGES: 27 FINDINGS: Fluoroscopy was provided to the patient's physician for theprocedure. Spot images demonstrate plate and screw fixation distal tibiafracture. See procedure note for further details. Ariel Garner DO GENERAL IMAGING * HCHG TUBE PR1, HCHG STYLET PR1 (10/27/2023 10:07 AM WARRANT CLERK) Narrative Desean Young CRNA - 10/27/2023 10:07 AM WARRANT CLERK Desean Young CRNA ? 10/27/2023 10:07 AM [...] ANES BLOCK INJ PERIPH (10/27/2023 9:17 AM WARRANT CLERK) Narrative Jose Newton MD - 10/27/2023 9:17 AM WARRANT CLERK Jose Newton MD ? 10/27/2023 ??9:19 AM [...] (ABNORMAL) BASIC METABOLIC PANEL (10/24/2023 6:39 AM WARRANT CLERK) Only the most recent of4 resultswithin the time period is included. SODIUM 135(L) 136 - 145 mmol/L 10/24/2023 7:20 AM [facility] POTASSIUM 3.9 3.5 - 5.1 mmol/L 10/24/2023 7:20 AM [facility] CHLORIDE 101 98 - 107 mmol/L 10/24/2023 7:20 AM [facility] CO2,TOTAL 23 22 - 29 mmol/L 10/24/2023 7:20 AM [facility] ANION GAP 11 5 - 18 10/24/2023 7:20 AM [facility] GLUCOSE 158(H) 70 - 99 mg/dL 10/24/2023 7:20 AM [facility] CALCIUM 8.7(L) 8.8 - 10.2 mg/dL 10/24/2023 7:20 AM [facility] BUN 30(H) 8 - 23 mg/dL 10/24/2023 7:20 AM [facility] CREATININE 0.89 0.70 - 1.20 mg/dL 10/24/2023 7:20 AM [facility] BUN/CREAT RATIO 34(H) 10 - 20 7:20 AM [facility] eGFR >90 >90 mL/min/1.7 3m2 10/24/2023 7:20 AM [facility] Comment:As of 2021, eG FR is calculated by the CKD-EPI creatinine equation without race adjustment. ??eGFR can be influenced by muscle mass, exercise, and diet. ??The reported eGFR is an estimation only and is only applicable if the renal function is stable. Blood BLOOD SPECIMEN / Unknown Butterfly / Unknown 10/24/2023 6:39 AM WARRANT CLERK 10/24/2023 6:57 AM WARRANT CLERK Blanca THOMPSON CHEMISTRY [facility] [place] [address] [address] [address] [place] [address] * (ABNORMAL) CBC WITH AUTO DIFFERENTIAL (10/22/2023 7:17 AM WARRANT CLERK) Only the most recent of2 resultswithin the time period is included. WHITE BLOOD COUNT 10.4 4.5 - 11.0 thou/cu mm 10/22/2023 7:23 AM [facility] RED BLOOD COUNT 4.69 4.30 - 5.90 mil/cu mm 10/22/2023 7:23 AM [facility] HEMOGLOBIN 13.7 13.5 - 17.5 g/dL 10/22/2023 7:23 AM [facility] HEMATOCRIT 40.4 37.0 - 53.0 % 10/22/2023 7:23 AM [facility] MCV 86 80 - 100 fL 10/22/2023 7:23 AM [facility] MCH 29.2 26.0 - 34.0 pg 10/22/2023 7:23 AM [facility] MCHC 33.9 32.0 - 36.0 g/dL 10/22/2023 7:23 AM [facility] RDW 12.9 11.5 - 15.5 % 10/22/2023 7:23 AM [facility] PLATELET COUNT 284 140 - 440 thou/cu mm 10/22/2023 7:23 AM [facility] MPV 10.1 6.5 - 11.0 fL 10/22/2023 7:23 AM [facility] NRBC 0.0 % 10/22/2023 7:23 AM [facility] ABS NRBC 0.0 thou /cu mm 10/22/2023 7:23 AM [facility] % NEUT 71.0 % 10/22/2023 7:23 AM [facility] % LYMPH 14.6 % 10/22/2023 7:23 AM [facility] % MONO 11.9 % 10/22/2023 7:23 AM [facility] % EOS 1.1 % 10/22/2023 7:23 AM [facility] % BASO 0.7 % 10/22/2023 7:23 AM [facility] % IMMATURE GRAN (METAS,MYELOS,CT OS) 0.7 % 10/22/2023 7:23 AM [facility] ABSOLUTE NEUTROPHILS 7.4(H) 1.7 - 7.0 thou/cu mm 10/22/2023 7:23 AM [facility] ABSOLUTE LYMPHOCYTES 1.5 0.9 - 2.9 thou/cu mm 10/22/2023 7:23 AM [facility] ABSOLUTE MONOCYTES 1.2(H) <0.9 thou/cu mm 10/22/2023 7:23 AM [facility] ABSOLUTE EOSINOPHILS 0.1 <0.5 thou/cu mm 10/22/2023 7:23 AM [facility] ABSOLUTE BASOPHILS 0.1 <0.3 thou/cu mm 10/22/2023 7:23 AM [facility] ABSOLUTE IMMATURE GRANULOCYTES(MET ,MYELOS,PROS) 0.1 <0.3 thou/cu mm 10/22/2023 7:23 AM [facility] Blood BLOOD SPECIMEN / Unknown Butterfly / Unknown 10/22/2023 7:17 AM WARRANT CLERK 10/22/2023 7:20 AM WARRANT CLERK Blanca THOMPSON HEMATOLOGY [facility] [place]NAL ZIP [address] [address] [place] [id number] * COVID-19 MOLECULAR (10/19/2023 1:36 PM WARRANT CLERK) COVID 19 [place] MOLECULAR Negative Negative 10/19/2023 2:56 PM WARRANT CLERK [facility] Comment:All PCR tests are feliciano bject to false negative result due to variability in viral load and collection technique. A negative result does not rule out a SARS-CoV-2 infection. Clinical correlation required. TESTING LABORATORY [facility] 10/19/2023 2:56 PM WARRANT CLERK [facility] Comment:Specimen submitted t o [facility] for testing. Other SPECIMEN FROM NASOPHARYNGEAL STRUCTURE / Unknown Non-Blood / Unknown 10/19/2023 1:36 PM WARRANT CLERK 10/19/2023 1:44 PM WARRANT CLERK Narrative [facility] - 10/19/2023 2:56 PM WARRANT CLERK This test has been authorized by FDA [...] terminated or revoked sooner. Blanca THOMPSON MICROBIOLOGY [facility] [place]NAL ZIP [address] [address] [place] [address] * INFLUENZA A/B PCR (10/19/2023 1:36 PM WARRANT CLERK) INFLUENZA A PCR Negative 10/19/2023 2:56 PM WARRANT CLERK [facility] INFLUENZA B PCR Negative 10/19/2023 2:56 PM WARRANT CLERK [facility] Other SPECIMEN FROM NASOPHARYNGEAL STRUCTURE / Unknown Non-Blood / Unknown 10/19/2023 1:36 PM WARRANT CLERK 10/19/2023 1:44 PM WARRANT CLERK Blanca THOMPSON MICROBIOLOGY [facility] INTERNAL ZIP [address] [address] [place] [address] * XR ABDOMEN 1 VIEW PORTABLE (10/19/2023 11:31 AM WARRANT CLERK) Anatomical Region Laterality Modality Abdomen Digital Radiogra phy 10/19/2023 11:3 1 AM WARRANT CLERK Impressions 10/19/2023 1:51 PM WARRANT CLERK No signs of bowel obstruction, pneumatosis, or pneumoperitoneum. Moderate volume formed stool seen throughout colon. There is moderate gaseous distention of the stomach. No pathologic calcifications or signs of organomegaly. Coarse interstitial markings are seen in the imaged lower lungs, suggestive of chronic interstitial change. No acute osseous abnormality. Narrative 10/19/2023 1:51 PM WARRANT CLERK For Patients: As a result of the Cures Act, medical imaging exams and procedure reports are released immediately into your electronic medical record. You may view this report before your referring provider. If you have questions, please contact your health care provider. EXAM: XR ABDOMEN 1 VIEW PORTABLE LOCATION: [facility] DATE: 10/19/2023 INDICATION: Abdominal Pain. COMPARISON: None. Procedure Note Arpan Groves DO - 10/19/2023 For Patients: As a result of the Cures Act, medical imagingexams and procedure reports are released immediately into your electronicmedical record. You may view this report before your referring provider.If you have questions, please contact your health care provider. EXAM: XR ABDOMEN 1 VIEW PORTABLE LOCATION: [facility] DATE: 10/19/2023 INDICATION: Abdominal Pain. COMPARISON: None. IMPRESSION: No signs of bowel obstruction, pneumatosis, or pneumoperitoneum. Moderatevolume formed stool seen throughout colon. There is moderate gaseousdistention of the stomach. No pathologic calcifications or signs oforganomegaly. Coarse interstitial markings are seen in the imaged lowerlungs, suggestive of chronic interstitial change. No acute osseousabnormality. Blanca THOMPSON [facility] * CT ANKLE LEFT WO (10/17/2023 6:13 PM WARRANT CLERK) Anatomical Region Laterality Modality ANKLE L Computed Tomogra phy 10/17/2023 6:13 PM WARRANT CLERK Impressions 10/17/2023 6:59 PM WARRANT CLERK 1. ??Comminuted distal tibial fractures (pilon fracture), [...] calf and ankle. Narrative 10/17/2023 6:59 PM WARRANT CLERK For Patients: As a result of the Century Cures Act, medical imaging exams and procedure reports are released immediately into your electronic medical record. You may view this report before your referring provider. If you have questions, please contact your health care provider. EXAM: CT ANKLE LEFT WO LOCATION: [facility] DATE: 10/17/2023 INDICATION: Fracture evaluation status [...] For Patients: As a result of the 21st Century Cures Act, medical imagingexams and procedure reports are released immediately into your electronicmedical record. You may view this report before your referring provider.If you have questions, please contact your health care provider. EXAM: CT ANKLE LEFT WO LOCATION: [facility] DATE: 10/17/2023 INDICATION: Fracture evaluation status [...] C-ARM GREATER 1 HR (10/17/2023 4:06 PM WARRANT CLERK) Narrative Silent, Sched - 10/17/2023 4:07 PM WARRANT CLERK The result for this exam is either scanned and attached to this order or are included in the ordering provider's NOTES from the patient's Office Visit or Surgical procedure from this date. Ariel Garner DO FLUOROSCOPY * XR ANKLE 2 VIEWS LEFT (10/17/2023 4:06 PM WARRANT CLERK) Anatomical Region Laterality Modality ANKLES, ANKLE L Digital Radiogra phy 10/17/2023 4:06 PM WARRANT CLERK Impressions 10/17/2023 4:20 PM WARRANT CLERK C-arm used for an orthopedic procedure. 3 minutes and 38 seconds of fluoroscopy time used during the course of the study. 17 images obtained which demonstrate screw and plate fixation of the distal tibial diaphysis and traction pin placement in the calcaneus. Narrative 10/17/2023 4:20 PM WARRANT CLERK For Patients: As a result of the Cures Act, medical imaging exams and procedure reports are released immediately into your electronic medical record. You may view this report before your referring provider. If you have questions, please contact your health care provider. EXAM: XR ANKLE 2 VIEWS LEFT LOCATION: [facility] DATE: 10/17/2023 INDICATION: Pain. COMPARISON: None. Procedure Note Paras Francisco MD - 10/17/2023 For Patients: As a result of the Cures Act, medical imagingexams and procedure reports are released immediately into your electronicmedical record. You may view this report before your referring provider.If you have questions, please contact your health care provider. EXAM: XR ANKLE 2 VIEWS LEFT LOCATION: [facility] DATE: 10/17/2023 INDICATION: Pain. COMPARISON: None. IMPRESSION: C-arm used for an orthopedic procedure. 3 minutes and 38 seconds offluoroscopy time used during the course of the study. 17 images obtainedwhich demonstrate screw and plate fixation of the distal tibial diaphysisand traction pin placement in the calcaneus. Ariel Garner DO GENERAL IMAGING * HCHG TUBE PR1, HCHG STYLET PR1 (10/17/2023 2:41 PM WARRANT CLERK) Narrative Doyle Hodgson CRNA - 10/17/2023 2:41 PM WARRANT CLERK Doyle Hodgson CRNA ? 10/17/2023 ??2:42 PM [...] * Type and Screen (10/17/2023 4:10 AM WARRANT CLERK) Pathologist [facility] ABORH A Rh Negative 10/17/2023 5:12 AM WARRANT CLERK [facility] BLOOD BANK ANTIBODY SCREEN Negative Negative 10/17/2023 5:12 AM WARRANT CLERK [facility] BLOOD BANK SPECIMEN EXPIRATION DATE/TIME 10/20/23 23:59 10/17/2023 5:12 AM WARRANT CLERK [facility] BLOOD BANK Blood BLOOD SPECIMEN / Unknown Non-Lab Venipuncture / Unknown 10/17/2023 4:10 AM WARRANT CLERK 10/17/2023 4:23 AM WARRANT CLERK Lexie Aiken MD BLOOD BANK [facility] BLOOD BANK [address] [place] [address] * SCAN-CARDIAC STRIP (10/17/2023 12:00 AM WARRANT CLERK) Narrative 10/17/2023 12:00 AM WARRANT CLERK Ordered by an unspecified provider. Other Clinical Staff OTHER * SPLINT APPLICATION (10/16/2023 9:28 PM WARRANT CLERK) Narrative Nickie Montes De Oca PA - 10/16/2023 9:28 PM WARRANT CLERK Nickie Montes De Oca PA ? 10/17/2023 [...] SPINE LUMBAR 2 VIEWS (10/16/2023 8:43 PM WARRANT CLERK) Anatomical Region Laterality Modality LUMBAR SPINE Digital Radiogra phy [facility] * XR PELVIS 1 VIEW (10/16/2023 8:43 PM WARRANT CLERK) Anatomical Region Laterality Modality Pelvis Digital Radiogra phy [facility] * XR FOOT 3 VIEWS LEFT (10/16/2023 5:24 PM WARRANT CLERK) Anatomical Region Laterality Modality FEET, FOOT L Digital Radiogra phy [facility] * CT SPINE CERVICAL WO (10/16/2023 5:19 PM WARRANT CLERK) Anatomical Region Laterality Modality CERVICAL SPINE, NECK, Spine Comp uted Tomography Nickie [facility] * CT HEAD BRAIN WO (10/16/2023 5:18 PM WARRANT CLERK) Anatomical Region Laterality Modality HEAD, BRAIN Computed Tomogra phy Ncikie [facility] CT * CRITICAL CARE PROVIDED (10/16/2023 5:01 PM WARRANT CLERK) Narrative Nickie Montes De Oca PA - 10/16/2023 5:01 PM WARRANT CLERK Nickie Montes De Oca PA ? 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 PCP - General 04/09/15
--- OUTSIDE RECORDS SUMMARY | 2024-01-12 10:54 | XMS_ITS | Data Portability ---
Author Name Unknown Address [address] [place] [address] Phone [phone] Organization [facility], [facility] Address [address] [place] [address] Care Team Providers Care Clinical Study Manager Name Role Phone TRI KING Primary Care [...] gram solution for injection 2020 08 021 [facility] [address] [facility], [place], [place], [facility] [place], [address], 09:30:06 Patient TargetsNo targets recorded. Patient InstructionsNo [...] Biopsy Procedure completed Phan Peoples MD [address], [place], [address], [facility] 05/13/2021 09:51:41 Orthopedic Surgery completed Darlene lees [facility] 05/13/2021 09:21:37 Imaging Results Imaging Date [...] 0.5 kg/m2 1814.37 g Darlene Yumiko yoana [facility] 05/13/2021 09:28:45 Social History Question Answer Notes LastModified by Organizat ion Details LastModified Time Tobacco Smoking Status Former Smoker Darlene lees [facility] 05/13/2021 09:22:45 What Is Your Level [...] High Blood Pressure N Kidney Stones N Depression N Lung Disease N GERD/Acid Reflux N Diabetes Y Sexually Transmitted Infection N Bleeding Disorder N Cancer N High Cholesterol N Heart Disease N Past Encounters Encounter ID Performer Location Encounter Start Date Encounter Closed Date Diagnosis/Indication Diagnosis SNOMED-CT Code [id number] Phan Peoples MD [facility] [address] [place] [id number] 05/13/2021 09:11:34 05/14/2021 16:30:21 Prostate specific antigen above reference range [id number] Health Concerns Section Related Observation LastModified by Organization Detai ls LastModified Time None Recorded Concern Status LastModified by Organization Details LastModified Time None Recorded Advance Directives Directive None Recorded Payers Encounter Date Sequence Insurance Name Policy Number Policy Deras Covered Member ID Deras Member ID Guarantor Name 05/13/2021 1 [place]: [employer] Elena Weiss [place] [id number] Burten Comal 05/13/2021 2 [employer] SUPPLEMENTAL - [employer]URANCE (MEDICARE SUPPLEMENT) Elena Weiss [place] [id number] Shaten Comal Notes Date Note Type Note Provider Name and Address Organization Details Recorded Time 05/13/2021 text/html HPI Notes: 65 year old male who follows with me in our [facility] for elevated PSA (most recently 4.45 ng/mL). Here for TRUS biopsy. Phan Peoples MD [address] [place] [address],[address], [place], [address], [facility] 05/13/2021 09:52:19
== END 2024-01-12 10:53 | disposition home or self-care (01) ==
LOC: WOUND 10:53
PROVIDERS: PCP Family Medicine; Visit Provider Nurse Practitioner Family
DX: L89.894 Pressure ulcer of other site, stage 4 (principal); E11.621 Type 2 diabetes mellitus with foot ulcer; L97.428 Non-pressure chronic ulcer of left heel and midfoot with other specified severity; Z96.698 Presence of other orthopedic joint implants; Z79.84 Long term (current) use of oral hypoglycemic drugs
CPT/HCPCS: 11042; 11043

== ENCOUNTER 2024-01-16 14:31 | Outpatient (CLI) | payer MEDICARE, OTHER, SELFPAY ==
--- OUTSIDE RECORDS SUMMARY | 2024-01-16 14:33 | XMS_ITS | Clinical Summary ---
Author Name Unknown Organization [facility] Address [place], [place] [address] Care Team Providers Care Blacking Wheel Tender Name Role Phone Pcp, No Primary Care [...] Encounters Date Type Department Care Team Description 01/15/2024 11:10 AM CDT Ancillary Procedure [facility] [place] [address] [place] [address] Arrived 01/15/2024 9:45 AM CDT Office Visit [facility] [place] [address] [place] [address] Shailesh Granados PA Musculoskeletal Problem (S/P Open reduction internal fixation of the??Left??pilon fracture, Removal of external fixator under anesthesia by Dr. Garner) 01/15/2024 Telephone [facility] [place] [address] [place] [address] Shailesh Granados PA Prior Authorization (NEED CLINICALS SIGNED ) 01/15/2024 Travel 01/15/2024 Telephone [facility] [place] [address] [place] [address] Ariel Garner, Appointment 12/29/2023 Telephone [facility] [place] [address] [place] [address] Ariel Garner, DO 12/25/2023 1:30 PM CDT Ancillary Procedure [facility] [place] [address] [place] [address] 12/25/2023 1:00 PM CDT Office Visit [facility] [place] [address] [place] [address] Ariel Garner, DO Musculoskeletal Problem (S/P Open reduction internal fixation of the??Left??pilon fracture, Removal of external fixator under anesthesia by Dr. Garner) 12/25/2023 Travel 11/20/2023 12:05 PM TRUCK CRANE OPERATOR Ancillary Procedure [facility] [place] [address] [place] [address] 11/20/2023 11:45 AM TRUCK CRANE OPERATOR Office Visit [facility] [address] [place] [address] Shailesh Granados PA Surgical Followup (S/P Open reduction internal fixation of the Left pilon fracture, Removal of external fixator) 11/20/2023 Travel 11/10/[address] [facility] [address] [place] [address] Ariel Garner, DO DME Supply ([employer] ) 11/09/[address] [facility] [address] [place] [address] Ariel Garner, DO Appointment 11/07/2023 Telephone [facility] [address] [place] [address] Karely Alston Adelina, CIARA 10/27/2023 10:19 AM TRUCK CRANE OPERATOR - 10/27/2023 1:36 PM TRUCK CRANE OPERATOR Surgery [address] [address] Ariel Garner, OPEN REDUCTION INTERNAL FIXATION OF LEFT DISTAL TIBIA FRACTURE AND REMOVAL OF EXTERNAL FIXATOR 10/27/2023 9:50 AM TRUCK CRANE OPERATOR Anesthesia Event [address] [address] Desean Young, RONY 10/24/[address] [facility] [address] [place] [address] Ariel Garner, Questions (CALL BACK ) 10/21/2023 Travel 10/19/2023 Travel 10/17/2023 2:04 PM TRUCK CRANE OPERATOR Anesthesia Event [address] [address] Gage Gama MD Johnson, Benjamin Richard, MD 10/17/2023 12:24 PM TRUCK CRANE OPERATOR - 10/17/2023 3:08 PM TRUCK CRANE OPERATOR Surgery [facility] [address] [place] [facility] [place] [address] Ariel Garner DO APPLICATION EXTERNAL FIXATOR LEFT ANKLE, LIMITED OPEN REDUCTION AND INTERNAL FIXATION OF TIBIA FRACTURE 10/17/2023 12:29 AM TRUCK CRANE OPERATOR - 10/29/2023 2:12 PM TRUCK CRANE OPERATOR Hospital Encounter [facility] [address] [place] [facility] [place] [address] Johnny Gutierrez MD Service, Core Trauma oJnas Olivarez DO Closed nondisplaced pilon fracture of left tibia, initial encounter (Primary Dx); Essential hypertension; Controlled type 2 diabetes mellitus without complication, without long-term current use of insulin (HC) Discharge Disposition: Assisted Facility from Last 3 Months Immunizations Name Administration [...] Comments Blood Pressure 131/88 10/29/2023 7:44 AM TRUCK CRANE OPERATOR Pulse 97 10/29/2023 7:44 AM TRUCK CRANE OPERATOR Temperature 36.9 ??C (98.4 ??F) 10/29/2023 7:44 AM CS T Respiratory Rate 16 10/29/2023 7:44 AM TRUCK CRANE OPERATOR Oxygen Saturation 98% 10/29/2023 7:44 AM TRUCK CRANE OPERATOR Inhaled Oxygen Concentration - - Weight 113.5 kg (250 lb 3.6 oz) 10/27/2023 4:36 AM TRUCK CRANE OPERATOR Height 182.9 cm (6') 10/17/2023 12:55 PM TRUCK CRANE OPERATOR Body Mass Index 33.94 10/17/2023 12:55 PM TRUCK CRANE OPERATOR Plan of Treatment Upcoming Encounters Date Type Department Care Team (Late st Contact Info) Description 01/17/2024 12:48 PM CDT Hospital Encounter [address] [address] Ariel Garner, [address] [address] 01/17/2024 12:48 PM CDT - 01/17/2024 3:13 PM CDT Surgery [address] [address] [place] [id number] [address] RIGHT LOWER LEG IRRIGATION AND DEBRIDEMENT 01/29/2024 10:45 AM CDT Office Visit [facility] [place] [address] [facility] [address] [place] [address] [place] [address] [facility] [address] [place] [address] Scheduled Procedures Name Priority Associated Diagnoses Date/Ti me IRRIGATION DEBRIDEMENT LOWER EXTREMITY Class E Urgent Aftercare following surgery of the musculoskeletal system 01/17/2024 12:48 PM CDT Health Maintenance Due Date Last Done Comments [...] 07/09/2019 07/09/2018, 06/13/2016, 12/22/2015 COVID-19 vaccine series (2022- season) 2023 12/25/2020, 12/04/2020 Influenza for age 65+ 06/02/2024 Tetanus booster 10/18/2033 10/18/2023 Tdap Completed 10/18/2023 Medical Devices Implanted Type Area Veneer Supervisor Device Identifier Shelf Expiration Date Model / Serial / Lot Screw Bone 2.4x30mm Evos Cortex T7 S-T - [id number] Implanted:Qty: 2 on 10/27/2023 by Ariel Garner DO at [facility] Left: Leg [employer] [id number] / / Description:Sticker sheet no t received for this case Screw Bone 3.5x65mm Evos Small Cortex Slf Tppng - [id number] Implanted:Qty: 1 on 10/27/2023 by Ariel Garner DO at [facility] Left: Leg [employer] [id number] / / Description:Sticker sheet no t received for this case Screw Bone 2.7x40mm Evos T8 Slf Tppng - [id number] Implanted:Qty: 2 on 10/27/2023 by Ariel Garner DO at [facility] Left: Leg [employer] [id number] / / Description:Sticker sheet no t received for this case Screw Bone 2.7x44mm Evos T8 Slf Tppng - [id number] Implanted:Qty: 2 on 10/27/2023 by Ariel Garner DO at [facility] Left: Leg [employer] [id number] / / Description:Sticker sheet no t received for this case Screw Bone 2.7x46mm Evos T8 Slf Tppng - [id number] Implanted:Qty: 1 on 10/27/2023 by Ariel Garner DO at [facility] Left: Leg [employer] [id number] / / Description:Sticker sheet no t received for this case Screw Bone 2.7x38mm Evos T8 Slf Tppng - [id number] Implanted:Qty: 1 on 10/27/2023 by Ariel Garner DO at [facility] Left: Leg [employer] [id number] / / Description:Sticker sheet no t received for this case Screw Bone 3.5x42mm Evos Small Cortex Slf Tppng - [id number] Implanted:Qty: 3 on 10/27/2023 by Ariel Garner DO at [facility] Left: Leg [employer] [id number] / / Description:Sticker sheet no t received for this case Screw Bone 3.5x85mm Evos Small Cortex Slf Tppng - [id number] Implanted:Qty: 1 on 10/27/2023 by Ariel Garner DO at [facility] Left: Leg [employer] [id number] / / Description:Sticker sheet no t received for this case Screw Bone 3.5x24mm Evos Small Cortex Slf Tppng - [id number] Implanted:Qty: 1 on 10/27/2023 by Ariel Garner DO at [facility] Left: Leg [employer] [id number] / / Description:Sticker sheet no t received for this case Explanted Type Area Veneer Supervisor Device Identifier Shelf Expiration Date Model / Serial / Lot K-Wire 1.2s965ck St-St - [id number] Explanted:Qty: 1 on 10/17/2023 by Ariel Garner DO at [facility] Left: Leg [employer] [id number] / / Screw Sm Joint 3.5x30mm Variax 2 Bone - [id number] Implanted:Qty: 3 on 10/17/2023 by Ariel Garner DO at [facility] Explanted:Qty: 3 on 10/27/2023 by Ariel Garner DO at [facility] Left: Leg [employer] [id number] / / Plate 71mm 6 Hole One-Third Tubular - [id number] Implanted:Qty: 1 on 10/17/2023 by Ariel Garner DO at [facility] Explanted:Qty: 1 on 10/27/2023 by Ariel Garner DO at [facility] Left: Leg [employer] [id number] / / Pin Sm Joint 2v412c01nd Joes Slf Tppng St-St - [id number] Implanted:Qty: 2 on 10/17/2023 by Ariel Garner DO at [facility] Explanted:Qty: 2 on 10/27/2023 by Ariel Garner DO at [facility] Left: Leg [employer] 5018-6-200 / / Parveen Sm Joint [id number] Hoffman3 - [id number] Implanted:Qty: 1 on 10/17/2023 by Ariel Garner DO at [facility] Explanted:Qty: 1 on 10/27/2023 by Ariel Garner DO at [facility] Left: Leg [employer] 4922-8-350 / / Parveen Sm Joint [id number] Hoffman3 - [id number] Implanted:Qty: 1 on 10/17/2023 by Ariel Garner DO at [facility] Explanted:Qty: 1 on 10/27/2023 by Ariel Garner DO at [facility] Left: Leg [employer] 4922-8-400 / / Clamp Sm Joint Roche 3 2 Post 30 Deg - [id number] Implanted:Qty: 1 on 10/17/2023 by Ariel Garner DO at [facility] Explanted:Qty: 1 on 10/27/2023 by Ariel Garner DO at [facility] Left: Leg [employer] 4922-2-240 / / Coupling Sm Joint 5/8/11mm Roche 3 Parveen To Parveen - [id number] Implanted:Qty: 4 on 10/17/2023 by Ariel Garner, DO at [facility] Explanted:Qty: 4 on 10/27/2023 by Ariel Garner, DO at [facility] Left: Leg [employer] 4922-1-010 / / Screw Sm Joint 3.5x28mm Variax 2 Bone - [id number] Implanted:Qty: 1 on 10/17/2023 by Ariel Garner, DO at [facility] Explanted:Qty: 1 on 10/27/2023 by Ariel Garner, DO at [facility] Left: Leg [employer] [id number] / / Procedures Procedure Name Priority Date/Time Associated Diagnosis Comments XR ANKLE 3 VIEWS LEFT Routine 01/15/2024 11:36 AM CDT S/P Open reduction internal fixation of the??Left??pilon fracture, Removal of external fixator under anesthesia by Dr. Garner XR ANKLE 3 VIEWS LEFT Routine 12/25/2023 1:41 PM CDT S/P Open reduction internal fixation of the??Left??pilon fracture, Removal of external fixator under anesthesia by Dr. Garner XR ANKLE 3 VIEWS LEFT Routine 11/20/2023 12:15 PM TRUCK CRANE OPERATOR S/P Open reduction internal fixation of the??Left??pilon fracture, Removal of external fixator under anesthesia by Dr. Garner GLUCOSE METER Timed 10/29/2023 11:15 AM TRUCK CRANE OPERATOR HEMOGLOBIN Early AM 10/29/2023 6:27 AM TRUCK CRANE OPERATOR CREATININE Early AM 10/29/2023 6:27 AM TRUCK CRANE OPERATOR POTASSIUM Early AM 10/29/2023 6:27 AM TRUCK CRANE OPERATOR SODIUM Early AM 10/29/2023 6:27 AM TRUCK CRANE OPERATOR HEMOGLOBIN A1C LINDSEY 10/28/2023 10:29 PM TRUCK CRANE OPERATOR HEMOGLOBIN A1C SCREENING Early AM 10/28/2023 10:29 PM TRUCK CRANE OPERATOR GLUCOSE METER Timed 10/28/2023 9:45 PM TRUCK CRANE OPERATOR GLUCOSE METER Timed 10/28/2023 5:54 PM TRUCK CRANE OPERATOR GLUCOSE METER Timed 10/28/2023 11:51 AM TRUCK CRANE OPERATOR GLUCOSE METER Timed 10/28/2023 7:24 AM TRUCK CRANE OPERATOR HEMOGLOBIN Early AM 10/28/2023 6:42 AM TRUCK CRANE OPERATOR GLUCOSE METER Timed 10/27/2023 9:24 PM TRUCK CRANE OPERATOR GLUCOSE METER Timed 10/27/2023 5:15 PM TRUCK CRANE OPERATOR XR C-ARM EQUAL OR GREATER 4 HR Routine 10/27/2023 3:23 PM TRUCK CRANE OPERATOR XR TIBIA AND FIBULA 2 VIEWS LEFT Routine 10/27/2023 3:23 PM TRUCK CRANE OPERATOR ENDOTRACHEAL TUBE Routine 10/27/2023 10: 07 AM TRUCK CRANE OPERATOR ENDOTRACHEAL TUBE Routine 10/27/2023 10: 07 AM TRUCK CRANE OPERATOR OPEN REDUCTION INTERNAL FIXATION TIBIA FIBULA 10/27/2023 9:34 AM TRUCK CRANE OPERATOR LEFT DISTAL TIBIA FRACTURE Case Notes NO CIED, 248 LBS, ROSE AND NEPHEW DISTAL TIBIA PLATES, ROSE AND NEPHEW EVOS MINI, C-ARM, JENNIFER CLAMPS, GELPI, REGULAR TABLE Jv Nathan [phone] notified of case 10/27 1019 ([facility] PERIPHERAL BLOCK Routine 10/27/2023 9:17 AM TRUCK CRANE OPERATOR GLUCOSE METER Timed 10/27/2023 7:52 AM TRUCK CRANE OPERATOR GLUCOSE METER Timed 10/26/2023 9:15 PM TRUCK CRANE OPERATOR GLUCOSE METER Timed 10/26/2023 5:03 PM TRUCK CRANE OPERATOR GLUCOSE METER Timed 10/26/2023 11:51 AM TRUCK CRANE OPERATOR GLUCOSE METER Timed 10/26/2023 8:19 AM TRUCK CRANE OPERATOR GLUCOSE METER Timed 10/25/2023 9:27 PM TRUCK CRANE OPERATOR GLUCOSE METER Timed 10/25/2023 3:38 PM TRUCK CRANE OPERATOR GLUCOSE METER Timed 10/25/2023 11:56 AM TRUCK CRANE OPERATOR GLUCOSE METER Timed 10/25/2023 8:07 AM TRUCK CRANE OPERATOR GLUCOSE METER Timed 10/24/2023 9:54 PM TRUCK CRANE OPERATOR GLUCOSE METER Timed 10/24/2023 5:18 PM TRUCK CRANE OPERATOR GLUCOSE METER Timed 10/24/2023 11:51 AM TRUCK CRANE OPERATOR GLUCOSE METER Timed 10/24/2023 8:28 AM TRUCK CRANE OPERATOR BASIC METABOLIC PANEL Early AM 10/24/2023 6:39 AM TRUCK CRANE OPERATOR GLUCOSE METER Timed 10/23/2023 9:53 PM TRUCK CRANE OPERATOR GLUCOSE METER Timed 10/23/2023 5:10 PM TRUCK CRANE OPERATOR GLUCOSE METER Timed 10/23/2023 12:03 PM TRUCK CRANE OPERATOR GLUCOSE METER Timed 10/23/2023 7:32 AM TRUCK CRANE OPERATOR GLUCOSE METER Timed 10/22/2023 10:20 PM TRUCK CRANE OPERATOR GLUCOSE METER Timed 10/22/2023 4:16 PM TRUCK CRANE OPERATOR GLUCOSE METER Timed 10/22/2023 11:59 AM TRUCK CRANE OPERATOR GLUCOSE METER Timed 10/22/2023 7:27 AM TRUCK CRANE OPERATOR CBC WITH AUTO DIFFERENTIAL Early AM 10/22/2023 7:17 AM TRUCK CRANE OPERATOR CBC WITH AUTO DIFFERENTIAL Early AM 10/22/2023 7:17 AM TRUCK CRANE OPERATOR BASIC METABOLIC PANEL Early AM 10/22/2023 7:17 AM TRUCK CRANE OPERATOR GLUCOSE METER Timed 10/21/2023 9:37 PM TRUCK CRANE OPERATOR GLUCOSE METER Timed 10/21/2023 4:23 PM TRUCK CRANE OPERATOR GLUCOSE METER Timed 10/21/2023 12:53 PM TRUCK CRANE OPERATOR GLUCOSE METER Timed 10/21/2023 7:31 AM TRUCK CRANE OPERATOR BASIC METABOLIC PANEL Early AM 10/21/2023 7:17 AM TRUCK CRANE OPERATOR GLUCOSE METER Timed 10/20/2023 9:16 PM TRUCK CRANE OPERATOR GLUCOSE METER Timed 10/20/2023 4:46 PM TRUCK CRANE OPERATOR GLUCOSE METER Timed 10/20/2023 11:23 AM TRUCK CRANE OPERATOR GLUCOSE METER Timed 10/20/2023 7:56 AM TRUCK CRANE OPERATOR CBC WITH AUTO DIFFERENTIAL Early AM 10/20/2023 6:21 AM TRUCK CRANE OPERATOR CBC WITH AUTO DIFFERENTIAL Early AM 10/20/2023 6:21 AM TRUCK CRANE OPERATOR BASIC METABOLIC PANEL Early AM 10/20/2023 6:21 AM TRUCK CRANE OPERATOR GLUCOSE METER Timed 10/19/2023 5:33 PM TRUCK CRANE OPERATOR INFLUENZA A/B PCR Today 10/19/2023 1:3 6 PM TRUCK CRANE OPERATOR COVID-19 MOLECULAR Today 10/19/2023 1: 36 PM TRUCK CRANE OPERATOR GLUCOSE METER Timed 10/19/2023 12:24 PM TRUCK CRANE OPERATOR XR ABDOMEN 1 VIEW PORTABLE Routine 10/19/2023 11:31 AM TRUCK CRANE OPERATOR GLUCOSE METER Timed 10/19/2023 8:30 AM TRUCK CRANE OPERATOR GLUCOSE METER Timed 10/18/2023 10:19 PM TRUCK CRANE OPERATOR GLUCOSE METER Timed 10/18/2023 12:09 PM TRUCK CRANE OPERATOR GLUCOSE METER Timed 10/18/2023 9:06 AM TRUCK CRANE [address] CT ANKLE LEFT WO STAT 10/17/2023 6:13 PM TRUCK CRANE OPERATOR XR C-ARM GREATER 1 HR STAT 10/17/2023 4:06 PM TRUCK CRANE OPERATOR XR ANKLE 2 VIEWS LEFT STAT 10/17/2023 4:06 PM TRUCK CRANE OPERATOR ENDOTRACHEAL TUBE Routine 10/17/2023 2:4 1 PM TRUCK CRANE OPERATOR ENDOTRACHEAL TUBE Routine 10/17/2023 2:4 1 PM TRUCK CRANE OPERATOR APPLICATION EXTERNAL FIXATOR LOWER EXTREMITY 10/17/2023 1:48 PM TRUCK CRANE OPERATOR Ankle Fracture Case Notes DEREK TYPE & SCREEN STAT 10/17/2023 4:10 AM TRUCK CRANE OPERATOR CREATININE LINDSEY 10/17/2023 3:20 AM TRUCK CRANE OPERATOR SCAN-CARDIAC STRIP 10/17/2023 12 :00 AM TRUCK CRANE OPERATOR from Last 3 Months Results * XR ANKLE 3 VIEWS LEFT (01/15/2024 11:36 AM CDT) Only the most recent of3 resultswithin the time period is included. Anatomical Region Laterality Modality ANKLES, ANKLE L Computed Radiogr aphy 01/15/2024 11:3 6 AM CDT Impressions 01/15/2024 12:01 PM CDT Again seen are postoperative changes from plate and screw fixation of the distal tibial and medial malleolar fracture, in good anatomic alignment, unchanged. Fracture lucency remains visible. There appears to be a wound over the medial aspect of the distal tibial shaft. There is soft tissue swelling over the ankle and lower leg, nonspecific. Scattered hindfoot and midfoot degenerative changes are again noted. Narrative 01/15/2024 12:01 PM CDT For Patients: As a result of the Cures Act, medical imaging exams and procedure reports are released immediately into your electronic medical record. You may view this report before your referring provider. If you have questions, please contact your health care provider. EXAM: XR ANKLE 3 VIEWS LEFT LOCATION: [facility] DATE: 01/15/2024 INDICATION: Aftercare Following Surgery Of The Musculoskeletal System COMPARISON: 12/25/23 Procedure Note Pato Marie MD - 01/15/2024 For Patients: As a result of the Cures Act, medical imagingexams and procedure reports are released immediately into your electronicmedical record. You may view this report before your referring provider.If you have questions, please contact your health care provider. EXAM: XR ANKLE 3 VIEWS LEFT LOCATION: [facility] DATE: 01/15/2024 INDICATION: Aftercare Following Surgery Of The Musculoskeletal System COMPARISON: 12/25/23 IMPRESSION: Again seen are postoperative changes from plate and screw fixation of thedistal tibial and medial malleolar fracture, in good anatomic alignment,unchanged. Fracture lucency remains visible. There appears to be a woundover the medial aspect of the distal tibial shaft. There is soft tissueswelling over the ankle and lower leg, nonspecific. Scattered hindfoot andmidfoot degenerative changes are again noted. Shailesh [facility] * (ABNORMAL) GLUCOSE METER (10/29/2023 11:15 AM TRUCK CRANE OPERATOR) Only the most recent of42 resultswithin the time period is included. GLUCOSE METER 174(H) 65 - 100 mg/dL 10/29/2023 11:25 AM [facility] Blood BLOOD SPECIMEN / Unknown 10/29/2023 11:15 AM TRUCK CRANE OPERATOR 10/29/2023 11:25 AM TRUCK CRANE OPERATOR Core Trauma Service CHEMISTRY [facility] INTERNAL ZIP [phone] [employer] WhatsOpenPROM[place] [address] * (ABNORMAL) HEMOGLOBIN (10/29/2023 6:27 AM TRUCK CRANE OPERATOR) Only the most recent of2 resultswithin the time period is included. HEMOGLOBIN 11.2(L) 13.5 - 17.5 g/dL 10/29/2023 6:41 AM [facility] MCV 87 80 - 100 fL 10/29/2023 6:41 AM [facility] Blood BLOOD SPECIMEN / Unknown Butterfly / Unknown 10/29/2023 6:27 AM TRUCK CRANE OPERATOR 10/29/2023 6:38 AM TRUCK CRANE OPERATOR Viki Dobbs DO HEMATOLOGY Performing Organization Address City/[facility]/ZIP Co de Phone Number [facility] INTERNAL ZIP [phone] [employer] [employer] [facility] [place] [address] * SODIUM (10/29/2023 6:27 AM TRUCK CRANE OPERATOR) SODIUM 136 136 - 145 mmol/L 10/29/2023 7:06 AM [facility] Blood BLOOD SPECIMEN / Unknown Butterfly / Unknown 10/29/2023 6:27 AM TRUCK CRANE OPERATOR 10/29/2023 6:38 AM TRUCK CRANE OPERATOR Viki Dobbs DO CHEMISTRY [facility] INTERNAL ZIP [phone] [employer]S [facility] [place] [address] * POTASSIUM (10/29/2023 6:27 AM TRUCK CRANE OPERATOR) [facility] POTASSIUM 4.1 3.5 - 5.1 mmol/L 10/29/2023 7:06 AM [facility] Blood BLOOD SPECIMEN / Unknown Butterfly / Unknown 10/29/2023 6:27 AM TRUCK CRANE OPERATOR 10/29/2023 6:38 AM TRUCK CRANE OPERATOR Vikileda Reidpatsy LIGHT CHEMISTRY [facility] INTERNAL ZIP [phone] [place] [address] * (ABNORMAL) CREATININE (10/29/2023 6:27 AM TRUCK CRANE OPERATOR) Only the most recent of2 resultswithin the time period is included. [facility] eGFR 84(L) >90 mL/min/1.7 3m2 10/29/2023 7:06 AM [facility] Comment:As of 2021, eG FR is calculated by the CKD-EPI creatinine equation without race adjustment. ??eGFR can be influenced by muscle mass, exercise, and diet. ??The reported eGFR is an estimation only and is only applicable if the renal function is stable. CREATININE 0.97 0.70 - 1.20 mg/dL 10/29/2023 7:06 AM [facility] Blood BLOOD SPECIMEN / Unknown Butterfly / Unknown 10/29/2023 6:27 AM TRUCK CRANE OPERATOR 10/29/2023 6:38 AM TRUCK CRANE OPERATOR Viki Dobbs DO CHEMISTRY [facility] INTERNAL ZIP [phone] [place] [address] * (ABNORMAL) HEMOGLOBIN A1C SCREENING (10/28/2023 10:29 PM TRUCK CRANE OPERATOR) [facility] HEMOGLOBIN A1C SCREENING 8.2(H) <=6.4 % 10/29/2023 11:02 AM [facility] Blood BLOOD SPECIMEN / Unknown Venipuncture / Unknown 10/28/2023 10:29 PM TRUCK CRANE OPERATOR 10/28/2023 10:31 PM TRUCK CRANE OPERATOR Narrative [facility] - 10/29/2023 11:02 AM TRUCK CRANE OPERATOR ? (<5.7%) ?Normal ? (5.7% to 6.4%) ? Indicates prediabetes ? (>=6.5%) ? Confirms diabetes Falsely low levels may be seen with: Recent Transfusion, Recent Significant Blood Loss, Hemolytic Diseases, or Falsely elevated levels may be seen with: Untreated Anemias, Splenectomy Alexa Jacome DRIVE AWAY DRIVER CHEMISTRY Performing Organization Address [facility] Co de Phone Number [facility] [address] [place] [address], * (ABNORMAL) HEMOGLOBIN A1C MONITORING (POCT) (10/28/2023 10:29 PM TRUCK CRANE OPERATOR) HEMOGLOBIN A1C MONITORING (POCT) 8.1(H) <=6.4 % 10/29/2023 8:15 AM TRUCK CRANE OPERATOR [facility] Blood BLOOD SPECIMEN / Unknown Venipuncture / Unknown 10/28/2023 10:29 PM TRUCK CRANE OPERATOR 10/28/2023 10:31 PM TRUCK CRANE OPERATOR [facility] - 10/29/2023 8:15 AM TRUCK CRANE OPERATOR ? (<=6.9%) ? Indicates good control ? (7.0% to 7.9%) ? Indicates fair control ? (>=8.0%) ? Indicates poor control ?? NOTE: ??These thresholds are guidelines and ?individual targets may vary. Falsely low levels may be seen with: Recent Transfusion, Recent Significant Blood Loss, Hemolytic Diseases, or Falsely elevated levels may be seen with: Untreated Anemias, Splenectomy ? Ariel Garner DO CHEMISTRY Performing Organization Address [facility] Co de Phone Number [facility] [address] [place] [address], * XR C-ARM EQUAL OR GREATER 4 HR (10/27/2023 3:23 PM TRUCK CRANE OPERATOR) lAma Hall - 10/27/2023 3:24 PM TRUCK CRANE OPERATOR The result for this exam is either scanned and attached to this order or are included in the ordering provider's NOTES from the patient's Office Visit or Surgical procedure from this date. Ariel Garner DO FLUOROSCOPY * XR TIBIA AND FIBULA 2 VIEWS LEFT (10/27/2023 3:23 PM TRUCK CRANE OPERATOR) Anatomical Region Laterality Modality Tibia Digital Radiogra phy 10/27/2023 3:23 PM TRUCK CRANE OPERATOR Narrative 10/27/2023 3:38 PM TRUCK CRANE OPERATOR For Patients: As a result of the Cures Act, medical imaging exams and procedure reports are released immediately into your electronic medical record. You may view this report before your referring provider. If you have questions, please contact your health care provider. [facility] XR TIBIA AND FIBULA 2 VIEWS LEFT ?? 10/27/2023 3:23 PM TRUCK CRANE OPERATOR INDICATION: Intraoperative fracture fixation FLUOROSCOPIC TIME: 556 [...] questions, please contact your health care provider. [facility] XR TIBIA AND FIBULA 2 VIEWS LEFT 10/27/2023 3:23 PM TRUCK CRANE OPERATOR INDICATION: Intraoperative fracture fixation FLUOROSCOPIC TIME: 556 seconds NUMBER OF IMAGES: 27 FINDINGS: Fluoroscopy was provided to the patient's physician for theprocedure. Spot images demonstrate plate and screw fixation distal tibiafracture. See procedure note for further details. Ariel Garner DO GENERAL IMAGING * HCHG TUBE PR1, HCHG STYLET PR1 (10/27/2023 10:07 AM TRUCK CRANE OPERATOR) Narrative Desean Young CRNA - 10/27/2023 10:07 AM TRUCK CRANE OPERATOR Desean Young CRNA ? 10/27/2023 10:07 AM [...] ANES BLOCK INJ PERIPH (10/27/2023 9:17 AM TRUCK CRANE OPERATOR) Narrative Jose Newton MD - 10/27/2023 9:17 AM TRUCK CRANE OPERATOR Jose Newton MD ? 10/27/2023 ??9:19 AM [...] (ABNORMAL) BASIC METABOLIC PANEL (10/24/2023 6:39 AM TRUCK CRANE OPERATOR) Only the most recent of4 resultswithin the time period is included. SODIUM 135(L) 136 - 145 mmol/L 10/24/2023 7:20 AM [facility] POTASSIUM 3.9 3.5 - 5.1 mmol/L 10/24/2023 7:20 AM [facility] CHLORIDE 101 98 - 107 mmol/L 10/24/2023 7:20 AM [facility] CO2,TOTAL 23 22 - 29 mmol/L 10/24/2023 7:20 AM [facility] ANION GAP 11 5 - 18 10/24/2023 7:20 AM [facility] GLUCOSE 158(H) 70 - 99 mg/dL 10/24/2023 7:20 AM [facility] CALCIUM 8.7(L) 8.8 - 10.2 mg/dL 10/24/2023 7:20 AM [facility] BUN 30(H) 8 - 23 mg/dL 10/24/2023 7:20 AM [facility] CREATININE 0.89 0.70 - 1.20 mg/dL 10/24/2023 7:20 AM [facility] BUN/CREAT RATIO 34(H) 10 - 20 7:20 AM [facility] eGFR >90 >90 mL/min/1.7 3m2 10/24/2023 7:20 AM [facility] Comment:As of 2021, eG FR is calculated by the CKD-EPI creatinine equation without race adjustment. ??eGFR can be influenced by muscle mass, exercise, and diet. ??The reported eGFR is an estimation only and is only applicable if the renal function is stable. Blood BLOOD SPECIMEN / Unknown Butterfly / Unknown 10/24/2023 6:39 AM TRUCK CRANE OPERATOR 10/24/2023 6:57 AM TRUCK CRANE OPERATOR Blanca THOMPSON CHEMISTRY [facility] INTERNAL ZIP [address] [address] [place] [address] * (ABNORMAL) CBC WITH AUTO DIFFERENTIAL (10/22/2023 7:17 AM TRUCK CRANE OPERATOR) Only the most recent of2 resultswithin the time period is included. WHITE BLOOD COUNT 10.4 4.5 - 11.0 thou/cu mm 10/22/2023 7:23 AM [facility] RED BLOOD COUNT 4.69 4.30 - 5.90 mil/cu mm 10/22/2023 7:23 AM [facility] HEMOGLOBIN 13.7 13.5 - 17.5 g/dL 10/22/2023 7:23 AM [facility] HEMATOCRIT 40.4 37.0 - 53.0 % 10/22/2023 7:23 AM [facility] MCV 86 80 - 100 fL 10/22/2023 7:23 AM [facility] MCH 29.2 26.0 - 34.0 pg 10/22/2023 7:23 AM [facility] MCHC 33.9 32.0 - 36.0 g/dL 10/22/2023 7:23 AM [facility] RDW 12.9 11.5 - 15.5 % 10/22/2023 7:23 AM [facility] PLATELET COUNT 284 140 - 440 thou/cu mm 10/22/2023 7:23 AM [facility] MPV 10.1 6.5 - 11.0 fL 10/22/2023 7:23 AM [facility] NRBC 0.0 % 10/22/2023 7:23 AM [facility] ABS NRBC 0.0 thou /cu mm 10/22/2023 7:23 AM [facility] % NEUT 71.0 % 10/22/2023 7:23 AM [facility] % LYMPH 14.6 % 10/22/2023 7:23 AM [facility] % MONO 11.9 % 10/22/2023 7:23 AM [facility] % EOS 1.1 % 10/22/2023 7:23 AM [facility] % BASO 0.7 % 10/22/2023 7:23 AM [facility] % IMMATURE GRAN (METAS,MYELOS,CO OS) 0.7 % 10/22/2023 7:23 AM [facility] ABSOLUTE NEUTROPHILS 7.4(H) 1.7 - 7.0 thou/cu mm 10/22/2023 7:23 AM [facility] ABSOLUTE LYMPHOCYTES 1.5 0.9 - 2.9 thou/cu mm 10/22/2023 7:23 AM [facility] ABSOLUTE MONOCYTES 1.2(H) <0.9 thou/cu mm 10/22/2023 7:23 AM [facility] ABSOLUTE EOSINOPHILS 0.1 <0.5 thou/cu mm 10/22/2023 7:23 AM [facility] ABSOLUTE BASOPHILS 0.1 <0.3 thou/cu mm 10/22/2023 7:23 AM [facility] ABSOLUTE IMMATURE GRANULOCYTES(MET ,MYELOS,PROS) 0.1 <0.3 thou/cu mm 10/22/2023 7:23 AM [facility] Blood BLOOD SPECIMEN / Unknown Butterfly / Unknown 10/22/2023 7:17 AM TRUCK CRANE OPERATOR 10/22/2023 7:20 AM [facility] Blanca THOMPSON HEMATOLOGY [facility] INTERNAL ZIP [phone] [place] [address] * COVID-19 MOLECULAR (10/19/2023 1:36 PM TRUCK CRANE OPERATOR) COVID 19 [place] MOLECULAR Negative Negative 10/19/2023 2:56 PM [facility] Comment:All PCR tests are feliciano bject to false negative result due to variability in viral load and collection technique. A negative result does not rule out a SARS-CoV-2 infection. Clinical correlation required. TESTING LABORATORY [facility] 10/19/2023 2:56 PM [facility] Comment:Specimen submitted t o [facility] for testing. Other SPECIMEN FROM NASOPHARYNGEAL STRUCTURE / Unknown Non-Blood / Unknown 10/19/2023 1:36 PM TRUCK CRANE OPERATOR 10/19/2023 1:44 PM TRUCK CRANE OPERATOR Narrative [facility] - 10/19/2023 2:56 PM TRUCK CRANE OPERATOR This test has been authorized by FDA [...] terminated or revoked sooner. Blanca THOMPSON MICROBIOLOGY [facility] INTERNAL ZIP [address] [address] [facility] [place] [address] * INFLUENZA A/B PCR (10/19/2023 1:36 PM TRUCK CRANE OPERATOR) INFLUENZA A PCR Negative 10/19/2023 2:56 PM TRUCK CRANE OPERATOR [facility] INFLUENZA B PCR Negative 10/19/2023 2:56 PM TRUCK CRANE OPERATOR [facility] Other SPECIMEN FROM NASOPHARYNGEAL STRUCTURE / Unknown Non-Blood / Unknown 10/19/2023 1:36 PM TRUCK CRANE OPERATOR 10/19/2023 1:44 PM TRUCK CRANE OPERATOR Blanca BARRIENTOS MICROBIOLOGY [facility] INTERNAL ZIP [address] [address] [employer] [employer] [place] [address] * XR ABDOMEN 1 VIEW PORTABLE (10/19/2023 11:31 AM TRUCK CRANE OPERATOR) Anatomical Region Laterality Modality Abdomen Digital Radiogra phy 10/19/2023 11:3 1 AM TRUCK CRANE OPERATOR Impressions 10/19/2023 1:51 PM TRUCK CRANE OPERATOR No signs of bowel obstruction, pneumatosis, or pneumoperitoneum. Moderate volume formed stool seen throughout colon. There is moderate gaseous distention of the stomach. No pathologic calcifications or signs of organomegaly. Coarse interstitial markings are seen in the imaged lower lungs, suggestive of chronic interstitial change. No acute osseous abnormality. Narrative 10/19/2023 1:51 PM TRUCK CRANE OPERATOR For Patients: As a result of the Cures Act, medical imaging exams and procedure reports are released immediately into your electronic medical record. You may view this report before your referring provider. If you have questions, please contact your health care provider. EXAM: XR ABDOMEN 1 VIEW PORTABLE LOCATION: [facility] DATE: 10/19/2023 INDICATION: Abdominal Pain. COMPARISON: None. Procedure Note Arpan Groves, DO - 10/19/2023 For Patients: As a result of the s Act, medical imagingexams and procedure reports are released immediately into your electronicmedical record. You may view this report before your referring provider.If you have questions, please contact your health care provider. EXAM: XR ABDOMEN 1 VIEW PORTABLE LOCATION: [facility] DATE: 10/19/2023 INDICATION: Abdominal Pain. COMPARISON: [...] CT ANKLE LEFT WO (10/17/2023 6:13 PM TRUCK CRANE OPERATOR) Anatomical Region Laterality Modality ANKLE L Computed Tomogra phy 10/17/2023 6:13 PM TRUCK CRANE OPERATOR Impressions 10/17/2023 6:59 PM TRUCK CRANE OPERATOR 1. ??Comminuted distal tibial fractures (pilon fracture), [...] calf and ankle. Narrative 10/17/2023 6:59 PM TRUCK CRANE OPERATOR For Patients: As a result of the [employer] Cures Act, medical imaging exams and procedure reports are released immediately into your electronic medical record. You may view this report before your referring provider. If you have questions, please contact your health care provider. EXAM: CT ANKLE LEFT WO LOCATION: [facility] DATE: 10/17/2023 INDICATION: Fracture evaluation status [...] provider. EXAM: CT ANKLE LEFT WO LOCATION: [facility] DATE: 10/17/2023 INDICATION: Fracture evaluation status [...] C-ARM GREATER 1 HR (10/17/2023 4:06 PM TRUCK CRANE OPERATOR) Narrative Silent, Sched - 10/17/2023 4:07 PM TRUCK CRANE OPERATOR The result for this exam is either scanned and attached to this order or are included in the ordering provider's NOTES from the patient's Office Visit or Surgical procedure from this date. Ariel Garner DO FLUOROSCOPY * XR ANKLE 2 VIEWS LEFT (10/17/2023 4:06 PM TRUCK CRANE OPERATOR) Anatomical Region Laterality Modality ANKLES, ANKLE L Digital Radiogra phy 10/17/2023 4:06 PM TRUCK CRANE OPERATOR Impressions 10/17/2023 4:20 PM TRUCK CRANE OPERATOR C-arm used for an orthopedic procedure. 3 minutes and 38 seconds of fluoroscopy time used during the course of the study. 17 images obtained which demonstrate screw and plate fixation of the distal tibial diaphysis and traction pin placement in the calcaneus. Narrative 10/17/2023 4:20 PM TRUCK CRANE OPERATOR For Patients: As a result of the Century Cures Act, medical imaging exams and procedure reports are released immediately into your electronic medical record. You may view this report before your referring provider. If you have questions, please contact your health care provider. EXAM: XR ANKLE 2 VIEWS LEFT LOCATION: [facility] DATE: 10/17/2023 INDICATION: Pain. COMPARISON: None. Procedure Note Paras Francisco MD - 10/17/2023 For Patients: As a result of the Cures Act, medical imagingexams and procedure reports are released immediately into your electronicmedical record. You may view this report before your referring provider.If you have questions, please contact your health care provider. EXAM: XR ANKLE 2 VIEWS LEFT LOCATION: [facility] DATE: 10/17/2023 INDICATION: Pain. COMPARISON: None. IMPRESSION: C-arm used for an orthopedic procedure. 3 minutes and 38 seconds offluoroscopy time used during the course of the study. 17 images obtainedwhich demonstrate screw and plate fixation of the distal tibial diaphysisand traction pin placement in the calcaneus. Ariel Garner DO GENERAL IMAGING * HCHG TUBE PR1, HCHG STYLET PR1 (10/17/2023 2:41 PM TRUCK CRANE OPERATOR) Narrative Doyle Hodgson CRNA - 10/17/2023 2:41 PM TRUCK CRANE OPERATOR Doyle Hodgson, RONY ? 10/17/2023 ??2:42 PM Procedure: ETT Patient [...] * Type and Screen (10/17/2023 4:10 AM TRUCK CRANE OPERATOR) ABORH A Rh Negative 10/17/2023 5:12 AM TRUCK CRANE OPERATOR [facility] BLOOD BANK ANTIBODY SCREEN Negative Negative 10/17/2023 5:12 AM TRUCK CRANE OPERATOR [facility] BLOOD BANK SPECIMEN EXPIRATION DATE/TIME 10/20/23 23:59 10/17/2023 5:12 AM TRUCK CRANE OPERATOR [facility] BLOOD BANK Blood BLOOD SPECIMEN / Unknown Non-Lab Venipuncture / Unknown 10/17/2023 4:10 AM TRUCK CRANE OPERATOR 10/17/2023 4:23 AM TRUCK CRANE OPERATOR Lexie Aiken MD BLOOD BANK [facility] BLOOD BANK [address] [place] [address] * SCAN-CARDIAC STRIP (10/17/2023 12:00 AM TRUCK CRANE OPERATOR) Narrative 10/17/2023 12:00 AM TRUCK CRANE OPERATOR Ordered by an unspecified provider. Other Clinical Staff OTHER from Last 3 Months Advance Directives * Full Code (Latest Code Status on File) Date Activated Date Inactivated Comments 10/17/2023 3:04 AM 10/29/2023 4:23 PM Question Answer Comments Code Status Discussion: Other Care Teams Blacking Wheel Tender Relationship Specialty Start Date End Date Pcp, No . PCP - General 04/09/15
== END 2024-01-16 14:32 | disposition home or self-care (01) ==
LOC: NFLDREF 14:32
PROVIDERS: PCP Family Medicine; Visit Provider Family Medicine
DX: E11.9 Type 2 diabetes mellitus without complications (principal)
CPT/HCPCS: 80048

== ENCOUNTER 2024-11-06 12:03 | Outpatient (CLI) | payer MEDICARE, OTHER, SELFPAY | END 2024-11-06 12:04 | disposition home or self-care (01) | PROVIDERS: PCP Family Medicine; Visit Provider Family Medicine | DX: I10 Essential (primary) hypertension (principal); E11.40 Type 2 diabetes mellitus with diabetic neuropathy, unspecified; R97.20 Elevated prostate specific antigen [PSA] | CPT/HCPCS: 80048; 80061; 84153; 84460; 85025 ==